=== PATIENT | female | born 1955 | race Caucasian/White ===

== ENCOUNTER 2016-11-30 09:32 | Emergency (ER) | payer MEDICARE, MEDICAID ==
[2016-11-30 10:52] LABS: BASO % 0.4 % (0.0-1.0); EOS # 0.1 K/mm3 (0.0-0.50); LARGE UNSTAINED CELL # 0.3 K/mm3 (0.0-0.4); LARGE UNSTAINED CELL % 2.8 % (0.0-4.0); LYMPH % 10.1 % (24.0-44.0); MEAN CORPUSCULAR HEMOGLOBIN 31.8 pg (27.0-33.0); MEAN CORPUSCULAR HGB CONC 34.1 g/dl (32.0-36.5); MEAN CORPUSCULAR VOLUME 93.3 fl (80.0-96.0); MONO # 0.5 K/mm3 (0.0-0.8); MONO % 5.4 % (0.0-5.0); NEUTROPHILS # 7.8 K/mm3 (1.8-7.7); NEUTROPHILS % 80.4 % (36.0-66.0); PLATELET COUNT, AUTOMATED 301 k/mm3 (150-450); RED CELL DISTRIBUTION WIDTH 12.6 % (11.5-14.5); WHITE BLOOD COUNT 9.7 K/mm3 (4.0-10.0)
[2016-11-30 11:15] LABS: ANION GAP 8 MEQ/L (8-16); BLOOD UREA NITROGEN 13 MG/DL (7-18); CALCIUM LEVEL 8.7 MG/DL (8.8-10.2); CARBON DIOXIDE LEVEL 26 MEQ/L (21-32); CHLORIDE LEVEL 108 MEQ/L (98-107); CREATININE FOR GFR 0.46 MG/DL (0.55-1.02); GLOMERULAR FILTRATION RATE > 60.0 (>45); GLUCOSE, FASTING 112 MG/DL (80-110); POTASSIUM SERUM 4.5 MEQ/L (3.5-5.1); SODIUM LEVEL 142 MEQ/L (136-145)
--- NOTE | 2016-11-30 11:45 | EDDOCDS ---
Nurse's Notes [facility] Name: Neelam Johnson Age: 61 yrs Sex: Female : 1955 Arrival Date: 11/30/2016 Time: 09:32 Bed I6 / 28 Private MD: Krystle Crawford Diagnosis: Lumbago with sciatica, right side;Abdominal aortic ectasia Presentation: 11/30 09:37 Presenting complaint: Patient states: right leg pains from hip to toes. Patient crying hs1 in pain and very anxious as well. Patient states she believes is a side effect of Humira injections. Daughter also concerned as side effects that could be muscle wasting. Adult Sepsis Screening: The patient does not have new or worsening altered mentation. Patient's respiratory rate is less than 22. Systolic blood pressure is greater than 100. Patient has a qSOFA score of 0- Negative Sepsis Screen. Suicide/Homicide risk assessment- the patient denies having any suicidal and/or homicidal ideations and does not present with any other emotional, behavioral or mental health complaints. Status: Patient is not a staff services manager or dependent. Transition of care: patient was not received from another setting of care. 09:37 Acuity: PARAS Level 3 hs1 09:37 Method Of Arrival: Walkin/Carried/Asstd hs1 Triage Assessment: 09:45 General: Appears in no apparent distress, Behavior is appropriate for age, cooperative. hs1 Pain: Location: right leg Pain currently is 8 out of 10 on a pain scale. HIV screening NA for this visit Offered previously. Musculoskeletal: Range of motion limited in right hip very thin in appearance. Reports muscle spaspming. Historical: - Allergies: No known drug Allergies; - Home Meds: 1. Humira Pen Crohn's-UC-HS Start 40 mg/0.8 mL subcutaneous pnkt every 2 weeks due to inject today (Last dose: 11/16/2016) 2. Dry Eye Relief 1-0.2-0.2 % ophthalmic drop daily 3. Fish Oil Oral cap daily 4. acetaminophen 500 mg Oral tab 3 tab - PMHx: Chron's Disease; Cancer, Cervix; Cancer, Skin; - PSHx: Hysterectomy; Bowel resection; right finger amputation; Appendectomy; - Social history: Smoking status: Patient states former smoker of tobacco. No barriers to communication noted, The patient speaks fluent Turkmen, Speaks appropriately for age. - Family history: Not pertinent. - : The pt / caregiver states he / she is not on anticoagulants. Home medication list is obtained from the patient. - Exposure Risk Screening:: None identified. Screenin:42 Screening information is obtained from the patient. Fall risk: No risks identified. kr3 Assistance ADL's: requires no assistance with activities of daily living. Abuse/DV Screen: The patient / caregiver reports he/she is: not in a situation that causes fear, pain or injury. Nutritional screening: No deficits noted. Advance Directives: Currently, there is no health care proxy. home support is adequate. Assessment: 11:43 General: Appears uncomfortable. Pain: Location: right hip and right leg Pain currently kr3 is 10 out of 10 on a pain scale. Neurological: No deficits noted. Respiratory: Respiratory effort is even, unlabored. Derm: Skin is normal. Vital Signs: 09:34 BP 151 / 82; Pulse 84; Resp 18; Temp 97.6(O); Pulse Ox 97% on R/A; Weight 44 kg (R); ct3 Height 5 ft. 3 in. (160.02 cm) (R); Pain 10/10; 09:34 Body Mass Index 17.18 (44.00 kg, 160.02 cm) ct3 Vitals: 09:34 Log In Time: November 30, 2016 at 09:31. ct3 ED Course: 09:33 Patient visited by Padmini Ho PCA. ct3 09:33 Patient moved to Waiting ct3 09:34 Krystle Crawford is Private Physician. ct3 09:35 Patient moved to Pre RCE ct3 09:39 Triage Initiated hs1 09:59 Patient moved to Triage 1 dwg 10:05 [facility] ar2 10:05 Carin Yen MD is Attending Physician. ar2 10:05 Patient visited by Sean Pepe PA-C. ar2 10:40 [facility] Payment Agreement was scanned into [employer] and attached to record. jp5 10:47 Creatine Phosphokinase Sent. dwg 10:47 MED Profile Sent. dwg 10:47 CBC with Diff Sent. dwg 10:59 Patient moved to Radiology [facility] 11:16 Patient moved to I [facility] 11:36 Krystle Crawford is Referral Physician. ar2 11:42 The patient / caregiver is instructed regarding the plan of care and ED course. kr3 Accompanied by Family Member, Patient has correct armband on for positive identification. 11:44 No IV's were initiated during this patient's visit. No procedures done that require kr3 assistance. Order Results: Lab Order: CBC with Diff; SPEC'M 11/30/16 10:40 Test: WHITE BLOOD COUNT; Value: 9.7; Range: 4.0-10.0; Units: K/mm3; Status: F Test: RED BLOOD COUNT; Value: 4.25; Range: 4.00-5.40; Units: M/mm3; Status: F Test: HEMOGLOBIN; Value: 13.5; Range: 12.0-16.0; Units: g/dl; Status: F Test: HEMATOCRIT; Value: 39.7; Range: 36.0-47.0; Units: %; Status: F Test: MEAN CORPUSCULAR VOLUME; Value: 93.3; Range: 80.0-96.0; Units: fl; Status: F Test: MEAN CORPUSCULAR HEMOGLOBIN; Value: 31.8; Range: 27.0-33.0; Units: pg; Status: F Test: MEAN CORPUSCULAR HGB CONC; Value: 34.1; Range: 32.0-36.5; Units: g/dl; Status: F Test: RED CELL DISTRIBUTION WIDTH; Value: 12.6; Range: 11.5-14.5; Units: %; Status: F Test: PLATELET COUNT, AUTOMATED; Value: 301; Range: 150-450; Units: k/mm3; Status: F Test: NEUTROPHILS %; Value: 80.4; Range: 36.0-66.0; Abnormal: Above high normal; Units: %; Status: F Test: LYMPH %; Value: 10.1; Range: 24.0-44.0; Abnormal: Below low normal; Units: %; Status: F Test: MONO %; Value: 5.4; Range: 0.0-5.0; Abnormal: Above high normal; Units: %; Status: F Test: EOS %; Value: 1.0; Range: 0.0-3.0; Units: %; Status: F Test: BASO %; Value: 0.4; Range: 0.0-1.0; Units: %; Status: F Test: LARGE UNSTAINED CELL %; Value: 2.8; Range: 0.0-4.0; Units: %; Status: F Test: NEUTROPHILS #; Value: 7.8; Range: 1.8-7.7; Abnormal: Above high normal; Units: K/mm3; Status: F Test: LYMPH #; Value: 1.0; Range: 1.5-4.5; Abnormal: Below low normal; Units: K/mm3; Status: F Test: MONO #; Value: 0.5; Range: 0.0-0.8; Units: K/mm3; Status: F Test: EOS #; Value: 0.1; Range: 0.0-0.50; Units: K/mm3; Status: F Test: BASO #; Value: 0.0; Range: 0.0-0.2; Units: K/mm3; Status: F Test: LARGE UNSTAINED CELL #; Value: 0.3; Range: 0.0-0.4; Units: K/mm3; Status: F Lab Order: MED Profile; SPEC'M 11/30/16 10:40 Test: GLUCOSE, FASTING; Value: 112; Range: 80-110; Abnormal: Above high normal; Units: MG/DL; Status: F Test: BLOOD UREA NITROGEN; Value: 13; Range: 7-18; Units: MG/DL; Status: F Test: CREATININE FOR GFR; Value: 0.46; Range: 0.55-1.02; Abnormal: Below low normal; Units: MG/DL; Status: F Test: GLOMERULAR FILTRATION RATE; Value: > 60.0; Range: >45; Status: F Test: SODIUM LEVEL; Value: 142; Range: 136-145; Units: MEQ/L; Status: F Test: POTASSIUM SERUM; Value: 4.5; Range: 3.5-5.1; Units: MEQ/L; Status: F Test: CHLORIDE LEVEL; Value: 108; Range: 98-107; Abnormal: Above high normal; Units: MEQ/L; Status: F Test: CARBON DIOXIDE LEVEL; Value: 26; Range: 21-32; Units: MEQ/L; Status: F Test: ANION GAP; Value: 8; Range: 8-16; Units: MEQ/L; Status: F Test: CALCIUM LEVEL; Value: 8.7; Range: 8.8-10.2; Abnormal: Below low normal; Units: MG/DL; Status: F Test Note: ; Units are mL/min/1.73 m2 Chronic Kidney Disease Staging per NKF: Stage I & II GFR >=60 Normal to Mildly Decreased Stage III GFR 30-59 Moderately Decreased Stage IV GFR 15-29 Severely Decreased Stage V GFR <15 Very Little GFR Left ESRD GFR <15 on [employer] Lab Order: Creatine Phosphokinase; SPEC'M 11/30/16 10:40 Test: CPK CREATINE PHOSPHOKINASE; Value: 50; Range: 26-192; Units: U/L; Status: F Outcome: 11:36 Discharge ordered by Provider. ar2 11:43 Discharge Assessment: patient administered narcotics - no. The following High Risk kr3 Discharge criteria are identified: None. Discharged to home ambulatory. Condition: stable. Discharge instructions given to patient, Instructed on discharge instructions, follow up and referral plans. medication usage, Demonstrated understanding of instructions, medications, Pt was receptive of discharge instructions/ teaching. Prescriptions given X 1. No special radiology studies were completed. Property sent home with patient. 11:44 Patient left the ED. kr3 Signatures: Abdiaziz Baird, RN RN Dona Mathur [facility] Marlene Rodas,RN RN kr3 Sean Pepe PA-C PATannerC ar2 Dottie Brandt RN RN hs1 Padmini Ho, ALIS CAREER DEVELOPMENT CONSULTANT ct3 Tristan Cruz jp5 MTDD
--- NOTE | 2016-11-30 11:45 | EDDOCDS ---
Physician Documentation [facility] Name: Neelam Johnson Age: 61 yrs Sex: Female : 1955 Arrival Date: 11/30/2016 Time: 09:32 Bed I6 / 28 Private MD: Krystle Crawford Disposition: 11/30/16 11:36 Discharged to Home/Self Care. Impression: Lumbago with sciatica, right side, Abdominal aortic ectasia. - Condition is Stable. - Discharge Instructions: Sciatica. - Prescriptions for Naprosyn 500 mg Oral Tablet - take 1 tablet by ORAL route 2 times per day take with food; 30 tablet. - Medication Reconciliation, Local Pharmacy Hours form. - Follow up: Krystle Crawford; When: 4 - 5 days; Reason: Recheck today's complaints, Continuance of care. Follow up: Emergency Department; When: As needed; Reason: Worsening of conditions. - Problem is new. - Symptoms have improved. Historical: - Allergies: No known drug Allergies; - Home Meds: 1. Humira Pen Crohn's-UC-HS Start 40 mg/0.8 mL subcutaneous pnkt every 2 weeks due to inject today (Last dose: 11/16/2016) 2. Dry Eye Relief 1-0.2-0.2 % ophthalmic drop daily 3. Fish Oil Oral cap daily 4. acetaminophen 500 mg Oral tab 3 tab - PMHx: Chron's Disease; Cancer, Cervix; Cancer, Skin; - PSHx: Hysterectomy; Bowel resection; right finger amputation; Appendectomy; - Social history: Smoking status: Patient states former smoker of tobacco. No barriers to communication noted, The patient speaks fluent Belarusian, Speaks appropriately for age. - Family history: Not pertinent. - : The pt / caregiver states he / she is not on anticoagulants. Home medication list is obtained from the patient. - Exposure Risk Screening:: None identified. Vital Signs: 11/30 09:34 BP 151 / 82; Pulse 84; Resp 18; Temp 97.6(O); Pulse Ox 97% on R/A; Weight 44 kg / 97 ct3 lbs (R); Height 5 ft. 3 in. (160.02 cm) (R); Pain 10/10; 09:34 Body Mass Index 17.18 (44.00 kg, 160.02 cm) ct3 MDM: 10:15 CBC with Diff Ordered. EDMS 10:15 MED Profile Ordered. EDMS 10:15 Creatine Phosphokinase Ordered. EDMS 10:16 Spine. Lumbosacral, Complete Ordered. EDMS 10:40 [facility] Payment Agreement was scanned into [employer] and attached to record. jp5 10:41 Financial registration complete. jp5 11:29 CBC with Diff Reviewed. ar2 11:29 MED Profile Reviewed. ar2 11:29 Creatine Phosphokinase Reviewed. ar2 Signatures: Dispatcher [employer] EDMS Marlene Rodas,RN RN kr3 Sean Pepe PA-C PAAishwarya ar2 Dottie Brandt RN RN hs1 Tristan Cruz jp5 The chart was reviewed and I authenticate all verbal orders and agree with the evaluation and treatment provided.Attachments: 10:40 [facility] Payment Agreement jp5 MTDD
--- NOTE | 2016-11-30 22:35 | REP ---
Lumbosacral spine series 11/30/2016 Indication: Right sciatica Findings: There is very minimal levoscoliosis of the lumbar spine, with apex at L3. There is no acute fracture or spondylolisthesis. There is ectasia and atherosclerotic changes within the abdominal aorta which measures 2.8 cm proximally , with mild distal tapering. Visualized portions of the SI joints and sacrum are intact. Impression: no acute fracture or spondylolisthesis. Ectasia of the abdominal aorta and mild distal tapering. Moderate atherosclerotic changes Signed by Akanksha Robertson MD 11/30/2016 10:26 P
--- NOTE | 2016-12-02 12:45 | EDDOCDS ---
Physician Documentation [facility] Name: Neelam Johnson Age: 61 yrs Sex: Female : 1955 Arrival Date: 11/30/2016 Time: 09:32 Bed I6 / 28 Private MD: Krystle Crawford Disposition: 11/30/16 11:36 Discharged to Home/Self Care. Impression: Lumbago with sciatica, right side, Abdominal aortic ectasia. - Condition is Stable. - Discharge Instructions: Sciatica. - Prescriptions for Naprosyn 500 mg Oral Tablet - take 1 tablet by ORAL route 2 times per day take with food; 30 tablet. - Medication Reconciliation, Local Pharmacy Hours form. - Follow up: Krystle Crawford; When: 4 - 5 days; Reason: Recheck today's complaints, Continuance of care. Follow up: Emergency Department; When: As needed; Reason: Worsening of conditions. - Problem is new. - Symptoms have improved. Historical: - Allergies: No known drug Allergies; - Home Meds: 1. Humira Pen Crohn's-UC-HS Start 40 mg/0.8 mL subcutaneous pnkt every 2 weeks due to inject today (Last dose: 11/16/2016) 2. Dry Eye Relief 1-0.2-0.2 % ophthalmic drop daily 3. Fish Oil Oral cap daily 4. acetaminophen 500 mg Oral tab 3 tab - PMHx: Chron's Disease; Cancer, Cervix; Cancer, Skin; - PSHx: Hysterectomy; Bowel resection; right finger amputation; Appendectomy; - Social history: Smoking status: Patient states former smoker of tobacco. No barriers to communication noted, The patient speaks fluent Chinese, Speaks appropriately for age. - Family history: Not pertinent. - : The pt / caregiver states he / she is not on anticoagulants. Home medication list is obtained from the patient. - Exposure Risk Screening:: None identified. Vital Signs: 11/30 09:34 BP 151 / 82; Pulse 84; Resp 18; Temp 97.6(O); Pulse Ox 97% on R/A; Weight 44 kg / 97 ct3 lbs (R); Height 5 ft. 3 in. (160.02 cm) (R); Pain 10/10; 09:34 Body Mass Index 17.18 (44.00 kg, 160.02 cm) ct3 MDM: 10:15 CBC with Diff Ordered. EDMS 10:15 MED Profile Ordered. EDMS 10:15 Creatine Phosphokinase Ordered. EDMS 10:16 Spine. Lumbosacral, Complete Ordered. EDMS 10:40 [facility] Payment Agreement was scanned into [employer] and attached to record. jp5 10:41 Financial registration complete. jp5 11:29 CBC with Diff Reviewed. ar2 11:29 MED Profile Reviewed. ar2 11:29 Creatine Phosphokinase Reviewed. ar2 14:52 T-Sheet-- Draft Copy was scanned into [email or web address] and attached to record. gb 14:52 Radiology Report was scanned into [email or web address] and attached to record. gb Signatures: Dispatcher [employer] EDMS Trinh Jimenez, Kobe Bullock gb Marlene Rodas,RN RN kr3 Sean Pepe, PAAishwarya PAAishwarya ar2 Dottie Brandt RN RN hs1 Tristan Cruz jp5 The chart was reviewed and I authenticate all verbal orders and agree with the evaluation and treatment provided.Attachments: 10:40 [facility] Payment Agreement jp5 14:52 T-Sheet-- Draft Copy gb Chart Complete MTDD
--- NOTE | 2016-12-02 12:45 | EDDOCDS ---
Physician Documentation [facility] Name: Neelam Johnson Age: 61 yrs Sex: Female : 1955 Arrival Date: 11/30/2016 Time: 09:32 Bed I6 / 28 Private MD: Krystle Crawford Disposition: 11/30/16 11:36 Discharged to Home/Self Care. Impression: Lumbago with sciatica, right side, Abdominal aortic ectasia. - Condition is Stable. - Discharge Instructions: Sciatica. - Prescriptions for Naprosyn 500 mg Oral Tablet - take 1 tablet by ORAL route 2 times per day take with food; 30 tablet. - Medication Reconciliation, Local Pharmacy Hours form. - Follow up: Krystle Crawford; When: 4 - 5 days; Reason: Recheck today's complaints, Continuance of care. Follow up: Emergency Department; When: As needed; Reason: Worsening of conditions. - Problem is new. - Symptoms have improved. Historical: - Allergies: No known drug Allergies; - Home Meds: 1. Humira Pen Crohn's-UC-HS Start 40 mg/0.8 mL subcutaneous pnkt every 2 weeks due to inject today (Last dose: 11/16/2016) 2. Dry Eye Relief 1-0.2-0.2 % ophthalmic drop daily 3. Fish Oil Oral cap daily 4. acetaminophen 500 mg Oral tab 3 tab - PMHx: Chron's Disease; Cancer, Cervix; Cancer, Skin; - PSHx: Hysterectomy; Bowel resection; right finger amputation; Appendectomy; - Social history: Smoking status: Patient states former smoker of tobacco. No barriers to communication noted, The patient speaks fluent Slovenian, Speaks appropriately for age. - Family history: Not pertinent. - : The pt / caregiver states he / she is not on anticoagulants. Home medication list is obtained from the patient. - Exposure Risk Screening:: None identified. Vital Signs: 11/30 09:34 BP 151 / 82; Pulse 84; Resp 18; Temp 97.6(O); Pulse Ox 97% on R/A; Weight 44 kg / 97 ct3 lbs (R); Height 5 ft. 3 in. (160.02 cm) (R); Pain 10/10; 09:34 Body Mass Index 17.18 (44.00 kg, 160.02 cm) ct3 MDM: 10:15 CBC with Diff Ordered. EDMS 10:15 MED Profile Ordered. EDMS 10:15 Creatine Phosphokinase Ordered. EDMS 10:16 Spine. Lumbosacral, Complete Ordered. EDMS 10:40 [facility] Payment Agreement was scanned into [employer] and attached to record. jp5 10:41 Financial registration complete. jp5 11:29 CBC with Diff Reviewed. ar2 11:29 MED Profile Reviewed. ar2 11:29 Creatine Phosphokinase Reviewed. ar2 14:52 T-Sheet-- Draft Copy was scanned into [employer] and attached to record. gb 14:52 Radiology Report was scanned into [employer] and attached to record. gb Signatures: Dispatcher [employer] EDMS Trinh Jimenez, Kobe Bullock gb Marlene Rodas,RN RN kr3 Sean Pepe, PAAishwarya PAAishwarya ar2 Dottie Brandt RN RN hs1 Tristan Cruz jp5 The chart was reviewed and I authenticate all verbal orders and agree with the evaluation and treatment provided.Attachments: 10:40 [facility] Payment Agreement jp5 14:52 T-Sheet-- Draft Copy gb Chart Complete MTDD
--- NOTE | 2016-12-02 12:45 | EDDOCDS ---
Nurse's Notes [facility] Name: Neelam Johnson Age: 61 yrs Sex: Female : 1955 Arrival Date: 11/30/2016 Time: 09:32 Bed I6 / 28 Private MD: Krystle Crawford Diagnosis: Lumbago with sciatica, right side;Abdominal aortic ectasia Presentation: 11/30 09:37 Presenting complaint: Patient states: right leg pains from hip to toes. Patient crying hs1 in pain and very anxious as well. Patient states she believes is a side effect of Humira injections. Daughter also concerned as side effects that could be muscle wasting. Adult Sepsis Screening: The patient does not have new or worsening altered mentation. Patient's respiratory rate is less than 22. Systolic blood pressure is greater than 100. Patient has a qSOFA score of 0- Negative Sepsis Screen. Suicide/Homicide risk assessment- the patient denies having any suicidal and/or homicidal ideations and does not present with any other emotional, behavioral or mental health complaints. Status: Patient is not a account services associate or dependent. Transition of care: patient was not received from another setting of care. 09:37 Acuity: PARAS Level 3 hs1 09:37 Method Of Arrival: Walkin/Carried/Asstd hs1 Triage Assessment: 09:45 General: Appears in no apparent distress, Behavior is appropriate for age, cooperative. hs1 Pain: Location: right leg Pain currently is 8 out of 10 on a pain scale. HIV screening NA for this visit Offered previously. Musculoskeletal: Range of motion limited in right hip very thin in appearance. Reports muscle spaspming. Historical: - Allergies: No known drug Allergies; - Home Meds: 1. Humira Pen Crohn's-UC-HS Start 40 mg/0.8 mL subcutaneous pnkt every 2 weeks due to inject today (Last dose: 11/16/2016) 2. Dry Eye Relief 1-0.2-0.2 % ophthalmic drop daily 3. Fish Oil Oral cap daily 4. acetaminophen 500 mg Oral tab 3 tab - PMHx: Chron's Disease; Cancer, Cervix; Cancer, Skin; - PSHx: Hysterectomy; Bowel resection; right finger amputation; Appendectomy; - Social history: Smoking status: Patient states former smoker of tobacco. No barriers to communication noted, The patient speaks fluent Hebrew, Speaks appropriately for age. - Family history: Not pertinent. - : The pt / caregiver states he / she is not on anticoagulants. Home medication list is obtained from the patient. - Exposure Risk Screening:: None identified. Screenin:42 Screening information is obtained from the patient. Fall risk: No risks identified. kr3 Assistance ADL's: requires no assistance with activities of daily living. Abuse/DV Screen: The patient / caregiver reports he/she is: not in a situation that causes fear, pain or injury. Nutritional screening: No deficits noted. Advance Directives: Currently, there is no health care proxy. home support is adequate. Assessment: 11:43 General: Appears uncomfortable. Pain: Location: right hip and right leg Pain currently kr3 is 10 out of 10 on a pain scale. Neurological: No deficits noted. Respiratory: Respiratory effort is even, unlabored. Derm: Skin is normal. Vital Signs: 09:34 BP 151 / 82; Pulse 84; Resp 18; Temp 97.6(O); Pulse Ox 97% on R/A; Weight 44 kg (R); ct3 Height 5 ft. 3 in. (160.02 cm) (R); Pain 10/10; 09:34 Body Mass Index 17.18 (44.00 kg, 160.02 cm) ct3 Vitals: 09:34 Log In Time: November 30, 2016 at 09:31. ct3 ED Course: 09:33 Patient visited by Padmini Ho PCA. ct3 09:33 Patient moved to Waiting ct3 09:34 Krystle Crawford is Private Physician. ct3 09:35 Patient moved to Pre RCE ct3 09:39 Triage Initiated hs1 09:59 Patient moved to Triage 1 dwg 10:05 [facility] ar2 10:05 Carin Yen MD is Attending Physician. ar2 10:05 Patient visited by Sean Pepe PA-C. ar2 10:40 [facility] Payment Agreement was scanned into [employer] and attached to record. jp5 10:47 Creatine Phosphokinase Sent. dwg 10:47 MED Profile Sent. dwg 10:47 CBC with Diff Sent. dwg 10:59 Patient moved to Radiology [facility] 11:16 Patient moved to I [facility] 11:36 Krystle Crawford is Referral Physician. ar2 11:42 The patient / caregiver is instructed regarding the plan of care and ED course. kr3 Accompanied by Family Member, Patient has correct armband on for positive identification. 11:44 No IV's were initiated during this patient's visit. No procedures done that require kr3 assistance. 14:52 T-Sheet-- Draft Copy was scanned into [employer] and attached to record. gb 14:52 Radiology Report was scanned into [employer] and attached to record. gb 22:46 Spine. Lumbosacral, Complete Returned. EDMS Order Results: Lab Order: CBC with Diff; SPEC'M 11/30/16 10:40 Test: WHITE BLOOD COUNT; Value: 9.7; Range: 4.0-10.0; Units: K/mm3; Status: F Test: RED BLOOD COUNT; Value: 4.25; Range: 4.00-5.40; Units: M/mm3; Status: F Test: HEMOGLOBIN; Value: 13.5; Range: 12.0-16.0; Units: g/dl; Status: F Test: HEMATOCRIT; Value: 39.7; Range: 36.0-47.0; Units: %; Status: F Test: MEAN CORPUSCULAR VOLUME; Value: 93.3; Range: 80.0-96.0; Units: fl; Status: F Test: MEAN CORPUSCULAR HEMOGLOBIN; Value: 31.8; Range: 27.0-33.0; Units: pg; Status: F Test: MEAN CORPUSCULAR HGB CONC; Value: 34.1; Range: 32.0-36.5; Units: g/dl; Status: F Test: RED CELL DISTRIBUTION WIDTH; Value: 12.6; Range: 11.5-14.5; Units: %; Status: F Test: PLATELET COUNT, AUTOMATED; Value: 301; Range: 150-450; Units: k/mm3; Status: F Test: NEUTROPHILS %; Value: 80.4; Range: 36.0-66.0; Abnormal: Above high normal; Units: %; Status: F Test: LYMPH %; Value: 10.1; Range: 24.0-44.0; Abnormal: Below low normal; Units: %; Status: F Test: MONO %; Value: 5.4; Range: 0.0-5.0; Abnormal: Above high normal; Units: %; Status: F Test: EOS %; Value: 1.0; Range: 0.0-3.0; Units: %; Status: F Test: BASO %; Value: 0.4; Range: 0.0-1.0; Units: %; Status: F Test: LARGE UNSTAINED CELL %; Value: 2.8; Range: 0.0-4.0; Units: %; Status: F Test: NEUTROPHILS #; Value: 7.8; Range: 1.8-7.7; Abnormal: Above high normal; Units: K/mm3; Status: F Test: LYMPH #; Value: 1.0; Range: 1.5-4.5; Abnormal: Below low normal; Units: K/mm3; Status: F Test: MONO #; Value: 0.5; Range: 0.0-0.8; Units: K/mm3; Status: F Test: EOS #; Value: 0.1; Range: 0.0-0.50; Units: K/mm3; Status: F Test: BASO #; Value: 0.0; Range: 0.0-0.2; Units: K/mm3; Status: F Test: LARGE UNSTAINED CELL #; Value: 0.3; Range: 0.0-0.4; Units: K/mm3; Status: F Lab Order: [facility]; [facility]' 11/30/16 10:40 Test: GLUCOSE, FASTING; Value: 112; Range: 80-110; Abnormal: Above high normal; Units: MG/DL; Status: F Test: BLOOD UREA NITROGEN; Value: 13; Range: 7-18; Units: MG/DL; Status: F Test: CREATININE FOR GFR; Value: 0.46; Range: 0.55-1.02; Abnormal: Below low normal; Units: MG/DL; Status: F Test: GLOMERULAR FILTRATION RATE; Value: > 60.0; Range: >45; Status: F Test: SODIUM LEVEL; Value: 142; Range: 136-145; Units: MEQ/L; Status: F Test: POTASSIUM SERUM; Value: 4.5; Range: 3.5-5.1; Units: MEQ/L; Status: F Test: CHLORIDE LEVEL; Value: 108; Range: 98-107; Abnormal: Above high normal; Units: MEQ/L; Status: F Test: CARBON DIOXIDE LEVEL; Value: 26; Range: 21-32; Units: MEQ/L; Status: F Test: ANION GAP; Value: 8; Range: 8-16; Units: MEQ/L; Status: F Test: CALCIUM LEVEL; Value: 8.7; Range: 8.8-10.2; Abnormal: Below low normal; Units: MG/DL; Status: F Test Note: ; Units are mL/min/1.73 m2 Chronic Kidney Disease Staging per NKF: Stage I & II GFR >=60 Normal to Mildly Decreased Stage III GFR 30-59 Moderately Decreased Stage IV GFR 15-29 Severely Decreased Stage V GFR <15 Very Little GFR Left ESRD GFR <15 on TOUCH UP WORKER Lab Order: Creatine Phosphokinase; SPEC'M 11/30/16 10:40 Test: CPK CREATINE PHOSPHOKINASE; Value: 50; Range: 26-192; Units: U/L; Status: F Radiology Order: Spine. Lumbosacral, Complete Test: Spine. Lumbosacral, Complete REASON FOR EXAMINATION: right sciatica; Lumbosacral spine series 11/30/2016; ; Indication: Right sciatica; ; Findings: There is very minimal levoscoliosis of the lumbar spine, with apex at; L3. There is no acute fracture or spondylolisthesis. There is ectasia and; atherosclerotic changes within the abdominal aorta which measures 2.8 cm; proximally , with mild distal tapering. Visualized portions of the SI joints; and sacrum are intact.; ; Impression: no acute fracture or spondylolisthesis.; ; Ectasia of the abdominal aorta and mild distal tapering. Moderate; atherosclerotic changes; ; ; Signed by; Akanksha Robertson MD 11/30/2016 10:26 P; Outcome: 11:36 Discharge ordered by Provider. ar2 11:43 Discharge Assessment: patient administered narcotics - no. The following High Risk kr3 Discharge criteria are identified: None. Discharged to home ambulatory. Condition: stable. Discharge instructions given to patient, Instructed on discharge instructions, follow up and referral plans. medication usage, Demonstrated understanding of instructions, medications, Pt was receptive of discharge instructions/ teaching. Prescriptions given X 1. No special radiology studies were completed. Property sent home with patient. 11:44 Patient left the ED. kr3 Signatures: Dispatcher [employer] EDAbdiaziz Jarrett, RN RN Dona Mathur [facility] Trinh Jimenez, Marlene Nicholson RN RN kr3 Sean Pepe, PA-C PA-C ar2 Dottie Brandt RN RN hs1 Padmini Ho, [employer] E[employer]IPMENT ERECTOR ct3 Tristan Cruz 5 Chart Complete MTDD
== END 2016-11-30 11:44 | disposition home or self-care (01) ==
LOC: M ED 09:32
DX: M54.31 Sciatica, right side (principal); I77.811 Abdominal aortic ectasia; K50.90 Crohn's disease, unspecified, without complications; Z85.41 Personal history of malignant neoplasm of cervix uteri; Z85.828 Personal history of other malignant neoplasm of skin; Z79.899 Other long term (current) drug therapy; Z87.891 Personal history of nicotine dependence

== ENCOUNTER → 2017-01-06 | Outpatient (CLI) | payer MEDICARE ==
[~2017-01-06] MED LIST: ISOVUE-370 76% 100ML VIAL (Q9967) As Ordered ONE
--- NOTE | 2017-01-06 13:53 | REP ---
Clinical: Followup lung nodules. Comparison: 04/30/2014. Technique: Axial contrast enhanced images from the thoracic inlet to the upper abdomen using 100 ml Isovue 370 intravenous contrast material with coronal and sagittal re-formations. Findings: Moderate diffuse emphysematous changes are appreciated along with mild bronchiectasis, biapical, medial right middle lobe and left lower lobe scarring. No previously noted areas of "tree in bud" infiltrates involving the right middle lobe and medial right lower lobe have resolved. The small nodular density in the anterior periphery of the left upper lobe represent a small focus of atelectasis and is no longer present. No new significant consolidation, nodule or mass lesion is appreciated. No pleural effusion/reaction or pneumothorax. Mediastinum demonstrates normal heart/pericardium and thoracic aorta with mild atherosclerotic changes. No pericardial effusion. No cardiomegaly. No axillary, hilar, or mediastinal adenopathy. Musculoskeletal structures are intact and normal for age. Impression: 1. Moderate chronic changes as described above. 2. Previously noted small areas of "tree in bud" infiltrates and 4 mm anterior left upper lobe density have resolved. 3. No new, significant mediastinal or pleuroparenchymal process. Signed by Junior Whitley MD 01/06/2017 01:45 P
== END ==
LOC: M RAD 12:55
PROVIDERS: ATTEND Nurse Practitioner Adult Health
DX: R91.8 Other nonspecific abnormal finding of lung field (principal)
CPT/HCPCS: 71260; Q9967

== ENCOUNTER → 2017-02-09 | Outpatient (REF) | payer MEDICARE | LOC: M SFHCPLAZ 13:31 | PROVIDERS: ATTEND Nurse Practitioner Adult Health | DX: K50.90 Crohn's disease, unspecified, without complications (principal) ==

== ENCOUNTER 2017-03-01 08:10 | Outpatient (RCR) | payer MEDICARE | END 2017-03-20 | LOC: M PT 08:10 | PROVIDERS: ATTEND Nurse Practitioner Adult Health | DX: M25.552 Pain in left hip (principal) | CPT/HCPCS: 97110; 97140; 97162; G8978; G8979 ==

== ENCOUNTER → 2017-03-17 | Outpatient (REF) | payer MEDICARE | LOC: M LAB REF 09:46 | PROVIDERS: ATTEND Physician Assistant | DX: R30.0 Dysuria (principal) ==

== ENCOUNTER → 2017-03-17 | Outpatient (CLI) | payer MEDICARE ==
[2017-03-17 19:51] LABS: BASO % 0.5 % (0.0-1.0); EOS # 0.2 K/mm3 (0.0-0.50); EOS % 2.1 % (0.0-3.0); LARGE UNSTAINED CELL # 0.2 K/mm3 (0.0-0.4); LARGE UNSTAINED CELL % 2.1 % (0.0-4.0); LYMPH # 2.4 K/mm3 (1.5-4.5); LYMPH % 26.7 % (24.0-44.0); MEAN CORPUSCULAR HEMOGLOBIN 32.4 pg (27.0-33.0); MEAN CORPUSCULAR VOLUME 95.2 fl (80.0-96.0); MONO # 0.6 K/mm3 (0.0-0.8); MONO % 6.5 % (0.0-5.0); NEUTROPHILS # 5.5 K/mm3 (1.8-7.7); NEUTROPHILS % 62.1 % (36.0-66.0); PLATELET COUNT, AUTOMATED 470 k/mm3 (150-450); RED CELL DISTRIBUTION WIDTH 12.6 % (11.5-14.5); WHITE BLOOD COUNT 8.9 K/mm3 (4.0-10.0)
[2017-03-17 20:12] LABS: ANION GAP 7 MEQ/L (8-16); BLOOD UREA NITROGEN 13 MG/DL (7-18); CALCIUM LEVEL 8.7 MG/DL (8.8-10.2); CARBON DIOXIDE LEVEL 29 MEQ/L (21-32); CHLORIDE LEVEL 107 MEQ/L (98-107); CREATININE FOR GFR 0.49 MG/DL (0.55-1.02); GLOMERULAR FILTRATION RATE > 60.0 (>45); GLUCOSE, FASTING 93 MG/DL (80-110); POTASSIUM SERUM 4.5 MEQ/L (3.5-5.1); SODIUM LEVEL 143 MEQ/L (136-145)
== END ==
LOC: M WUC 18:40
PROVIDERS: ATTEND Physician Assistant
DX: R30.0 Dysuria (principal); R10.32 Left lower quadrant pain

== ENCOUNTER → 2017-03-21 | Outpatient (CLI) | payer MEDICARE ==
[~2017-03-21] MED LIST changes: +GASTROGRAFIN SOLUTION 30ML (Q9963) As Ordered ONE
--- NOTE | 2017-03-21 19:55 | REP ---
CT ABDOMEN AND PELVIS WITHOUT AND WITH IV AND ORAL CONTRAST: 03/21/2017. Clinical history: Dysuria, left lower quadrant pain, history of Crohn disease. Prior uterine carcinoma with hysterectomy. Technique: Oral Gastrografin mixture 10 ml in 290 ml of flavored water for two doses per our bowel contrast protocol. Scanning through the abdomen followed by bolus of 100 ml Isovue 370 with venous phase imaging through the abdomen and pelvis and delayed imaging through the abdomen. Coronal and sagittal reconstructions provided. CT abdomen: Lung bases show some minor interstitial fibrotic changes and mild cylindrical bronchiectasis in the left lower lobe. No pleural effusion, mass or acute infiltrate. Heart is not enlarged and no pericardial thickening or effusion. A small hiatal hernia is suspected. It appears mostly reduced compared to the upper GI series 07/04/2014. No cardiomegaly, pericardial thickening or pericardial effusion. I see no hepatomegaly. The vertical diameter of the right lobe of the liver less than 18 cm. No hepatic mass, biliary dilatation or ascites. Spleen is not enlarged and shows no focal lesion. Thickening of the left adrenal gland and hypodensity suggesting a left adrenal adenoma. There is a smaller right adrenal adenoma, also with negative CT attenuation values and both unchanged from previous study. The kidneys show no stone, hydronephrosis, mass or cyst. No perinephric fluid. The aorta shows diffuse atherosclerotic calcifications, fairly heavy distally and particularly in the proximal iliac arteries. There is fusiform dilatation of the infrarenal abdominal aorta, which has aneurysmal appearance but does not reach aneurysmal size only 2.5 cm in maximum diameter. I would estimate 70% stenosis of the central lumen by extensive atherosclerotic plaque, certainly progressive compared to the 2014 study. No periaortic or other retroperitoneal pathologic sized lymphadenopathy. Small bowel loops shows contrast filling them proximally to distally. A loop of distal ileum which terminates in an anastomosis with the colon shows extensive edema, thickening and stranding in the mesentery adjacent to it, representing Crohn disease, which extends from the left mid abdomen into the left lower quadrant and transversely across the abdomen to the right colon. There is no free air, perforation and no ascites or adenopathy. Colon is collapsed on the left side of the abdomen below the iliac crest and into the sigmoid; mostly fluid-filled without much stool evident except in the residual portion of the right colon. No ventral hernia. Bone show degenerative changes in the posterior lumbar facets at L5-S1 with lumbar spine otherwise unremarkable. Visualized ribs intact. The dilatation of the small bowel immediately above the lengthy segment of strictured ileum extending from the anastomosis, about 9 cm may suggest some partial small-bowel obstruction. There is liquid stool and particulate in this region. This may reflect a partial obstructing pattern. CT pelvis: The bone windows show the hips, SI joints, sacrum, iliac wings, acetabuli and symphysis pubis intact. Bladder without mass or wall thickening. Vaginal cuff intact without pelvic mass. No adenopathy. Distal left colon, sigmoid with collapse and questionable wall thickening. This could be skip lesion, proctosigmoiditis from Crohn disease. I do not see abdominal or pelvic ascites or adenopathy. No ventral or inguinal hernia nor pathologic size inguinal adenopathy. Impression: 1. At least 9 cm long edematous wall strictured lumen for the distal ileum with anastomosis at the right colon and there is dilatation of the loop of small bowel with liquid and particulate matter suggesting some partial obstructive pattern there. Remainder of small bowel fluid and contrast filled. No ascites, adenopathy or free air/perforation. 2. Distal left colon, sigmoid and rectum collapsed with wall thickening and possibly some skip lesion proctosigmoiditis from Crohn disease. 3. Upper abdominal solid organs show bilateral adrenal adenomas and benign-appearing on noncontrast CT with no other significant solid organ finding. 4. The aorta shows fusiform dilatation, but only maximum diameter of 2.5 cm, however, the lumen is narrowed approximately 70% cross-section below the level of the interpolar region of the kidneys and progressive atherosclerotic change compared to the 2014 study. Findings consistent with active Crohn disease distal ileum segment and possibly in the left colon to rectosigmoid. Signed by Lasha Hale MD 03/21/2017 08:41 P
== END ==
LOC: M RAD 16:48
PROVIDERS: ATTEND Physician Assistant
DX: R10.9 Unspecified abdominal pain (principal); R30.0 Dysuria
CPT/HCPCS: 74178; Q9963; Q9967

== ENCOUNTER → 2017-08-10 | Outpatient (REF) | payer MEDICARE ==
[2017-08-10 16:58] LABS: ALBUMIN 2.6 GM/DL (3.2-5.2); ALBUMIN/GLOBULIN RATIO 0.72 (1.00-1.93); ALKALINE PHOSPHATASE 139 U/L (45-117); ALT/SGPT 15 U/L (12-78); ANION GAP 9 MEQ/L (8-16); AST/SGOT 9 U/L (15-37); BILIRUBIN,TOTAL 0.3 MG/DL (0.2-1.0); BLOOD UREA NITROGEN 16 MG/DL (7-18); CARBON DIOXIDE LEVEL 26 MEQ/L (21-32); CHLORIDE LEVEL 107 MEQ/L (98-107); CREATININE FOR GFR 0.39 MG/DL (0.55-1.02); GLOMERULAR FILTRATION RATE > 60.0 (>45); GLUCOSE, FASTING 81 MG/DL (80-110); POTASSIUM SERUM 4.3 MEQ/L (3.5-5.1); SODIUM LEVEL 142 MEQ/L (136-145); TOTAL PROTEIN 6.2 GM/DL (6.4-8.2)
[2017-08-10 18:36] LABS: MEAN CORPUSCULAR HEMOGLOBIN 32.8 pg (27.0-33.0); MEAN CORPUSCULAR HGB CONC 33.3 g/dl (32.0-36.5); MEAN CORPUSCULAR VOLUME 98.5 fl (80.0-96.0); RED CELL DISTRIBUTION WIDTH 13.5 % (11.5-14.5); WHITE BLOOD COUNT 9.6 K/mm3 (4.0-10.0)
== END ==
LOC: M SFHCPLAZ 14:08
PROVIDERS: ATTEND Nurse Practitioner Adult Health
DX: K50.90 Crohn's disease, unspecified, without complications (principal); E55.9 Vitamin D deficiency, unspecified
CPT/HCPCS: 36415; 80053; 82306; 85027; G0402

== ENCOUNTER → 2017-08-31 | Outpatient (REF) | payer MEDICARE ==
[2017-08-31 16:16] LABS: ALBUMIN 2.6 GM/DL (3.2-5.2); ALBUMIN/GLOBULIN RATIO 0.76 (1.00-1.93); ALKALINE PHOSPHATASE 116 U/L (45-117); ALT/SGPT 27 U/L (12-78); ANION GAP 8 MEQ/L (8-16); AST/SGOT 15 U/L (15-37); BILIRUBIN,TOTAL 0.2 MG/DL (0.2-1.0); BLOOD UREA NITROGEN 22 MG/DL (7-18); CALCIUM LEVEL 8.9 MG/DL (8.8-10.2); CARBON DIOXIDE LEVEL 24 MEQ/L (21-32); CHLORIDE LEVEL 106 MEQ/L (98-107); CREATININE FOR GFR 0.28 MG/DL (0.55-1.02); GLOMERULAR FILTRATION RATE > 60.0 (>45); GLUCOSE, FASTING 99 MG/DL (80-110); MAGNESIUM LEVEL 2.3 MG/DL (1.8-2.4); PHOSPHORUS LEVEL 3.9 MG/DL (2.5-4.9); POTASSIUM SERUM 4.5 MEQ/L (3.5-5.1); SODIUM LEVEL 138 MEQ/L (136-145)
== END ==
LOC: M LAB REF 15:16
PROVIDERS: ATTEND Surgery
DX: K50.90 Crohn's disease, unspecified, without complications (principal)

== ENCOUNTER → 2017-09-07 | Outpatient (REF) | payer MEDICARE ==
[2017-09-07 15:23] LABS: ALBUMIN 2.7 GM/DL (3.2-5.2); ALBUMIN/GLOBULIN RATIO 0.82 (1.00-1.93); ALKALINE PHOSPHATASE 128 U/L (45-117); ALT/SGPT 27 U/L (12-78); ANION GAP 6 MEQ/L (8-16); AST/SGOT 12 U/L (15-37); BILIRUBIN,TOTAL 0.2 MG/DL (0.2-1.0); BLOOD UREA NITROGEN 29 MG/DL (7-18); CALCIUM LEVEL 8.5 MG/DL (8.8-10.2); CARBON DIOXIDE LEVEL 26 MEQ/L (21-32); CHLORIDE LEVEL 105 MEQ/L (98-107); CREATININE FOR GFR 0.31 MG/DL (0.55-1.02); GLOMERULAR FILTRATION RATE > 60.0 (>45); GLUCOSE, FASTING 91 MG/DL (80-110); MAGNESIUM LEVEL 2.2 MG/DL (1.8-2.4); PHOSPHORUS LEVEL 4.4 MG/DL (2.5-4.9); POTASSIUM SERUM 4.4 MEQ/L (3.5-5.1); SODIUM LEVEL 137 MEQ/L (136-145); TRIGLYCERIDES LEVEL 210 MG/DL (<150)
== END ==
LOC: M LAB REF 14:55
PROVIDERS: ATTEND Surgery
DX: K50.90 Crohn's disease, unspecified, without complications (principal)

== ENCOUNTER → 2017-09-12 | Outpatient (REF) | payer MEDICARE ==
[2017-09-12 14:58] LABS: ALBUMIN/GLOBULIN RATIO 0.77 (1.00-1.93); ALKALINE PHOSPHATASE 139 U/L (45-117); ALT/SGPT 22 U/L (12-78); ANION GAP 7 MEQ/L (8-16); AST/SGOT 10 U/L (15-37); BILIRUBIN,TOTAL 0.4 MG/DL (0.2-1.0); BLOOD UREA NITROGEN 31 MG/DL (7-18); CALCIUM LEVEL 9.1 MG/DL (8.8-10.2); CARBON DIOXIDE LEVEL 24 MEQ/L (21-32); CHLORIDE LEVEL 106 MEQ/L (98-107); CREATININE FOR GFR 0.41 MG/DL (0.55-1.02); GLOMERULAR FILTRATION RATE > 60.0 (>45); GLUCOSE, FASTING 104 MG/DL (80-110); MAGNESIUM LEVEL 2.3 MG/DL (1.8-2.4); PHOSPHORUS LEVEL 4.5 MG/DL (2.5-4.9); SODIUM LEVEL 137 MEQ/L (136-145); TOTAL PROTEIN 6.9 GM/DL (6.4-8.2)
[2017-09-12 15:06] LABS: POTASSIUM SERUM 5.1 MEQ/L (3.5-5.1)
== END ==
LOC: M LAB REF 13:49
PROVIDERS: ATTEND Surgery
DX: K50.90 Crohn's disease, unspecified, without complications (principal)

== ENCOUNTER → 2017-09-19 | Outpatient (REF) | payer MEDICARE ==
[2017-09-19 14:38] LABS: ALBUMIN 3.1 GM/DL (3.2-5.2); ALBUMIN/GLOBULIN RATIO 0.82 (1.00-1.93); ALKALINE PHOSPHATASE 130 U/L (45-117); ALT/SGPT 17 U/L (12-78); ANION GAP 9 MEQ/L (8-16); AST/SGOT 7 U/L (7-37); BILIRUBIN,TOTAL 0.2 MG/DL (0.2-1.0); BLOOD UREA NITROGEN 26 MG/DL (7-18); CARBON DIOXIDE LEVEL 26 MEQ/L (21-32); CHLORIDE LEVEL 103 MEQ/L (98-107); CREATININE FOR GFR 0.31 MG/DL (0.55-1.02); GLOMERULAR FILTRATION RATE > 60.0 (>45); GLUCOSE, FASTING 90 MG/DL (80-110); MAGNESIUM LEVEL 2.2 MG/DL (1.8-2.4); PHOSPHORUS LEVEL 4.3 MG/DL (2.5-4.9); POTASSIUM SERUM 4.4 MEQ/L (3.5-5.1); SODIUM LEVEL 138 MEQ/L (136-145); TOTAL PROTEIN 6.9 GM/DL (6.4-8.2)
== END ==
LOC: M LAB REF 13:27
PROVIDERS: ATTEND Surgery
DX: E83.42 Hypomagnesemia (principal)

== ENCOUNTER → 2017-10-03 | Outpatient (REF) | payer MEDICARE ==
[2017-10-03 15:20] LABS: ALBUMIN 2.9 GM/DL (3.2-5.2); ALBUMIN/GLOBULIN RATIO 0.74 (1.00-1.93); ALKALINE PHOSPHATASE 140 U/L (45-117); ALT/SGPT 17 U/L (12-78); ANION GAP 6 MEQ/L (8-16); AST/SGOT 8 U/L (7-37); BILIRUBIN,TOTAL 0.2 MG/DL (0.2-1.0); BLOOD UREA NITROGEN 27 MG/DL (7-18); CALCIUM LEVEL 8.9 MG/DL (8.8-10.2); CARBON DIOXIDE LEVEL 28 MEQ/L (21-32); CHLORIDE LEVEL 104 MEQ/L (98-107); CREATININE FOR GFR 0.37 MG/DL (0.55-1.02); GLOMERULAR FILTRATION RATE > 60.0 (>45); GLUCOSE, FASTING 88 MG/DL (80-110); MAGNESIUM LEVEL 2.1 MG/DL (1.8-2.4); PHOSPHORUS LEVEL 4.4 MG/DL (2.5-4.9); POTASSIUM SERUM 4.6 MEQ/L (3.5-5.1); SODIUM LEVEL 138 MEQ/L (136-145); TOTAL PROTEIN 6.8 GM/DL (6.4-8.2); TRIGLYCERIDES LEVEL 107 MG/DL (<150)
== END ==
LOC: M LAB REF 14:15
PROVIDERS: ATTEND Surgery
DX: K50.90 Crohn's disease, unspecified, without complications (principal); Z79.899 Other long term (current) drug therapy

== ENCOUNTER → 2017-10-10 | Outpatient (REF) | payer MEDICARE ==
[2017-10-10 16:15] LABS: ALBUMIN 3.1 GM/DL (3.2-5.2); ALBUMIN/GLOBULIN RATIO 0.84 (1.00-1.93); ALKALINE PHOSPHATASE 136 U/L (45-117); ALT/SGPT 15 U/L (12-78); ANION GAP 10 MEQ/L (8-16); AST/SGOT 10 U/L (7-37); BILIRUBIN,TOTAL 0.2 MG/DL (0.2-1.0); BLOOD UREA NITROGEN 23 MG/DL (7-18); CALCIUM LEVEL 9.2 MG/DL (8.8-10.2); CARBON DIOXIDE LEVEL 24 MEQ/L (21-32); CHLORIDE LEVEL 105 MEQ/L (98-107); CREATININE FOR GFR 0.42 MG/DL (0.55-1.02); GLOMERULAR FILTRATION RATE > 60.0 (>45); GLUCOSE, FASTING 100 MG/DL (80-110); MAGNESIUM LEVEL 2.1 MG/DL (1.8-2.4); PHOSPHORUS LEVEL 3.9 MG/DL (2.5-4.9); POTASSIUM SERUM 4.5 MEQ/L (3.5-5.1); SODIUM LEVEL 139 MEQ/L (136-145); TOTAL PROTEIN 6.8 GM/DL (6.4-8.2)
== END ==
LOC: M LAB REF 15:04
PROVIDERS: ATTEND Surgery
DX: K50.90 Crohn's disease, unspecified, without complications (principal)

== ENCOUNTER → 2017-10-17 | Outpatient (REF) | payer MEDICARE ==
[2017-10-17 13:49] LABS: ALBUMIN 2.9 GM/DL (3.2-5.2); ALBUMIN/GLOBULIN RATIO 0.78 (1.00-1.93); ALKALINE PHOSPHATASE 125 U/L (45-117); ALT/SGPT 11 U/L (12-78); ANION GAP 9 MEQ/L (8-16); AST/SGOT 12 U/L (7-37); BILIRUBIN,TOTAL 0.2 MG/DL (0.2-1.0); BLOOD UREA NITROGEN 25 MG/DL (7-18); CALCIUM LEVEL 9.2 MG/DL (8.8-10.2); CARBON DIOXIDE LEVEL 24 MEQ/L (21-32); CHLORIDE LEVEL 105 MEQ/L (98-107); GLOMERULAR FILTRATION RATE > 60.0 (>45); GLUCOSE, FASTING 99 MG/DL (80-110); PHOSPHORUS LEVEL 4.4 MG/DL (2.5-4.9); POTASSIUM SERUM 4.6 MEQ/L (3.5-5.1); SODIUM LEVEL 138 MEQ/L (136-145); TOTAL PROTEIN 6.6 GM/DL (6.4-8.2)
== END ==
LOC: M LAB REF 12:29
PROVIDERS: ATTEND Surgery
DX: K50.90 Crohn's disease, unspecified, without complications (principal)

== ENCOUNTER → 2018-03-22 | Outpatient (CLI) | payer MEDICARE ==
[2018-03-22 16:07] LABS: BASO # 0.1 10^3/uL (0.0-0.2); BASO % 0.6 % (0.0-1.0); EOS # 0.2 10^3/uL (0.0-0.50); EOS % 1.9 % (0.0-3.0); HEMATOCRIT 43.3 % (36.0-47.0); HEMOGLOBIN 14.3 g/dl (12.0-15.5); IMMATURE GRANULOCYTE % 0.3 % (0-3.0); LYMPH # 1.5 10^3/uL (1.5-4.5); LYMPH % 15.7 % (24.0-44.0); MEAN CORPUSCULAR HEMOGLOBIN 30.1 pg (27.0-33.0); MEAN CORPUSCULAR VOLUME 91.2 fl (80.0-96.0); MONO # 0.8 10^3/uL (0.0-0.8); MONO % 7.8 % (0.0-5.0); NEUTROPHILS # 7.1 10^3/uL (1.8-7.7); NEUTROPHILS % 73.7 % (36.0-66.0); PLATELET COUNT, AUTOMATED 386 10^3/uL (150-450); RED BLOOD COUNT 4.75 10^6/uL (4.00-5.40); RED CELL DISTRIBUTION WIDTH 14.2 % (11.5-14.5); WHITE BLOOD COUNT 9.6 10^3/uL (4.0-10.0)
[2018-03-22 16:32] LABS: ANION GAP 8 MEQ/L (8-16); BLOOD UREA NITROGEN 18 MG/DL (7-18); CALCIUM LEVEL 9.2 MG/DL (8.8-10.2); CARBON DIOXIDE LEVEL 26 MEQ/L (21-32); CHLORIDE LEVEL 107 MEQ/L (98-107); CREATININE FOR GFR 0.53 MG/DL (0.55-1.30); GLOMERULAR FILTRATION RATE > 60.0 (>45); GLUCOSE, FASTING 100 MG/DL (70-100); POTASSIUM SERUM 4.5 MEQ/L (3.5-5.1); SODIUM LEVEL 141 MEQ/L (136-145)
== END ==
LOC: M LAB 15:41
DX: I70.213 Atherosclerosis of native arteries of extremities with intermittent claudication, bilateral legs (principal); F17.211 Nicotine dependence, cigarettes, in remission; Z70.0 Counseling related to sexual attitude
CPT/HCPCS: 80048

== ENCOUNTER 2018-05-04 09:06 | Inpatient (IN) | payer MEDICARE ==
[2018-05-04] MEDS ORDERED: ROCURONIUM BROMIDE 50 MG/5 ML VIAL As Ordered ×3 (09:45→12:34)
[2018-05-04] MEDS ORDERED: fentaNYL 100 MCG/2 ML INJECTION (J3010) As Ordered ×2 (09:45→12:35)
[2018-05-04] MEDS ORDERED: MIDAZOLAM INJ 2 MG/2 ML VIAL (J2250) As Ordered (09:45)
[2018-05-04] MEDS ORDERED: ONDANSETRON 4MG/2ML VIAL (J2405) As Ordered (09:45)
[2018-05-04] MEDS ORDERED: LIDOCAINE 2% INJ 100 MG/5 ML SDV (FOR ANES.) As Ordered (09:45)
[2018-05-04] MEDS ORDERED: NEOSTIGMINE 10 MG/10 ML VIAL (J2710) As Ordered (09:45)
[2018-05-04] MEDS ORDERED: dexameTHASONE 4 MG/ML 1ML VIAL (J1100) As Ordered (09:45)
[2018-05-04] MEDS ORDERED: GLYCOPYRROLATE INJ 0.2 MG/ML 2 ML VIAL As Ordered (09:45)
[2018-05-04] MEDS ORDERED: PROPOFOL 200 MG/20 ML VIAL As Ordered (09:45)
[2018-05-04] MEDS ORDERED: KETOROLAC 60 MG/2 ML VIAL (J1885) As Ordered (09:53)
[2018-05-04] MEDS: LR 1,000 ML IV ×2 (10:38→14:30)
[2018-05-04] MEDS ORDERED: HEPARIN SOD (PORCINE) 5000 UNITS/ML VIAL As Ordered ×2 (11:26→13:08)
[2018-05-04] MEDS: HEPARIN SOD (PORCINE) 5000 UNITS/ML VIAL As Ordered (12:40)
[2018-05-04] MEDS: THROMBIN SOLN 20,000 UNITS KIT As Ordered (12:46)
[2018-05-04] MEDS: PROTAMINE SULF INJ 50 MG/5 ML VIAL (J2720) As Ordered (13:00)
[2018-05-04] MEDS: LIDOCAINE 1% SDV INJ 30 ML VIAL As Ordered (13:56)
[2018-05-04] MEDS: BUPIVACAINE HCL 0.25% 30 ML VIAL As Ordered (13:56)
[2018-05-04] MEDS ORDERED: MORPHINE 4 MG/ML 1ML VIAL/SYRINGE (J2270) IV (14:15)
[2018-05-04] MEDS ORDERED: MOM 30ML SUSPENSION UDC PO (14:15)
[2018-05-04] MEDS ORDERED: ONDANSETRON 4MG/2ML VIAL (J2405) IV ×2 (14:15→14:30)
[2018-05-04] MEDS ORDERED: BISACODYL 10 MG SUPP PR (14:15)
[2018-05-04] MEDS ORDERED: MORPHINE 10 MG/ML 1ML VIAL (J2270) IV (14:30)
[2018-05-04] MEDS: PERCOCET 5MG/325MG TAB PO (14:30)
[2018-05-04] MEDS ORDERED: fentaNYL 100 MCG/2 ML INJECTION (J3010) IV (14:30)
[2018-05-04] MEDS: GABAPENTIN 100 MG CAP PO ×2 (16:53→20:20)
[2018-05-04] MEDS: NORCO, ANEXSIA 5/325MG TABLET (HYDROcodone/ACETAMINOPHEN) PO (18:34)
[2018-05-04] MEDS: SENOKOT S TAB PO (20:20)
[2018-05-04] MEDS: DOCUSATE SODIUM 100 MG CAP PO (20:20)
[2018-05-05] MEDS: MORPHINE 4 MG/ML 1ML VIAL/SYRINGE (J2270) IV (05:38)
[2018-05-05] MEDS: SENOKOT S TAB PO ×2 (08:25→20:27)
[2018-05-05] MEDS: GABAPENTIN 100 MG CAP PO ×3 (08:25→20:26)
[2018-05-05] MEDS: DOCUSATE SODIUM 100 MG CAP PO ×2 (08:25→20:27)
[2018-05-05] MEDS: NORCO, ANEXSIA 5/325MG TABLET (HYDROcodone/ACETAMINOPHEN) PO ×5 (08:27→20:28)
[2018-05-05] MEDS: NS 1,000 ML IV (22:40)
[2018-05-05 23:31] LABS: LACTIC ACID SEPSIS PROTOCOL 0.9 MMOL/L (0.4-2.0)
[2018-05-06] MEDS: NORCO, ANEXSIA 5/325MG TABLET (HYDROcodone/ACETAMINOPHEN) PO ×3 (01:53→21:06)
[2018-05-06] MEDS: D5W/LR 1,000 ML IV ×2 (01:53→16:26)
[2018-05-06] MEDS: MORPHINE 4 MG/ML 1ML VIAL/SYRINGE (J2270) IV ×4 (02:57→16:26)
[2018-05-06] MEDS: DOCUSATE SODIUM 100 MG CAP PO ×2 (07:47→21:06)
[2018-05-06] MEDS: GABAPENTIN 100 MG CAP PO ×3 (07:47→21:06)
[2018-05-06] MEDS: SENOKOT S TAB PO ×2 (07:47→21:05)
[2018-05-06 11:50] LABS: APPEARANCE, URINE CLEAR (CLEAR); BACTERIA, URINE AUTO NEGATIVE (NEGATIVE); BILIRUBIN, URINE AUTO NEGATIVE (NEGATIVE); BLOOD, URINE BLOOD NEGATIVE (NEGATIVE); COLOR, URINE YELLOW (YELLOW); GLUCOSE, URINE (UA) AUTO NEGATIVE (NEGATIVE); KETONE, URINE AUTO TRACE mg/dL (NEGATIVE); LEUKOCYTE ESTERASE, URINE AUTO NEGATIVE (NEGATIVE); MUCUS, URINE SMALL (NEGATIVE); NITRITE, URINE AUTO NEGATIVE (NEGATIVE); PROTEIN, URINE AUTO NEGATIVE (NEGATIVE); RBC, URINE AUTO 0 /HPF (0-3); SPECIFIC GRAVITY URINE AUTO 1.014 (1.002-1.035); SQUAMOUS EPITHELIAL CELL UR AU 0 /HPF (0-6); UROBILINOGEN, URINE AUTO 0.2 mg/dL (0.0-2.0); WBC, URINE AUTO 0 /HPF (0-3)
[2018-05-07] MEDS: NORCO, ANEXSIA 5/325MG TABLET (HYDROcodone/ACETAMINOPHEN) PO ×4 (01:30→20:00)
[2018-05-07 06:13] LABS: HEMATOCRIT 33.5 % (36.0-47.0); HEMOGLOBIN 11.2 g/dl (12.0-15.5); MEAN CORPUSCULAR HEMOGLOBIN 29.9 pg (27.0-33.0); MEAN CORPUSCULAR HGB CONC 33.4 g/dl (32.0-36.5); MEAN CORPUSCULAR VOLUME 89.6 fl (80.0-96.0); PLATELET COUNT, AUTOMATED 180 10^3/uL (150-450); RED BLOOD COUNT 3.74 10^6/uL (4.00-5.40); RED CELL DISTRIBUTION WIDTH 13.5 % (11.5-14.5); WHITE BLOOD COUNT 12.4 10^3/uL (4.0-10.0)
[2018-05-07 06:41] LABS: ANION GAP 8 MEQ/L (8-16); BLOOD UREA NITROGEN 10 MG/DL (7-18); CALCIUM LEVEL 8.2 MG/DL (8.8-10.2); CARBON DIOXIDE LEVEL 27 MEQ/L (21-32); CHLORIDE LEVEL 106 MEQ/L (98-107); CREATININE FOR GFR 0.35 MG/DL (0.55-1.30); GLOMERULAR FILTRATION RATE > 60.0 (>45); GLUCOSE, FASTING 114 MG/DL (70-100); POTASSIUM SERUM 3.7 MEQ/L (3.5-5.1); SODIUM LEVEL 141 MEQ/L (136-145)
[2018-05-07] MEDS: GABAPENTIN 100 MG CAP PO ×3 (08:23→20:00)
[2018-05-07] MEDS: DOCUSATE SODIUM 100 MG CAP PO ×2 (08:23→19:49)
[2018-05-07] MEDS: SENOKOT S TAB PO ×2 (08:23→19:49)
[2018-05-07] MEDS: D5W/LR 1,000 ML IV (11:28)
[2018-05-08] MEDS: NORCO, ANEXSIA 5/325MG TABLET (HYDROcodone/ACETAMINOPHEN) PO ×2 (01:36→07:31)
[2018-05-08] MEDS: D5W/LR 1,000 ML IV (02:58)
[2018-05-08] MEDS: DOCUSATE SODIUM 100 MG CAP PO (07:29)
[2018-05-08] MEDS: SENOKOT S TAB PO (07:29)
[2018-05-08] MEDS: GABAPENTIN 100 MG CAP PO (07:31)
== END 2018-05-08 14:31 | disposition home or self-care (01) | DRG 271 ==
LOC: M OR 09:06 → M MSPAV 14:55
PROVIDERS: Surgery Vascular Surgery
PROC: 04100JJ Bypass Abdominal Aorta to Left Femoral Artery with Synthetic Substitute, Open Approach (ICD-10-PCS; principal; 2018-05-04 11:05)
DX: I70.213 Atherosclerosis of native arteries of extremities with intermittent claudication, bilateral legs (principal); Z68.1 Body mass index [BMI] 19.9 or less, adult; K50.90 Crohn's disease, unspecified, without complications; I74.19 Embolism and thrombosis of other parts of aorta; J44.9 Chronic obstructive pulmonary disease, unspecified; F17.210 Nicotine dependence, cigarettes, uncomplicated; K44.9 Diaphragmatic hernia without obstruction or gangrene; Z79.899 Other long term (current) drug therapy; M19.90 Unspecified osteoarthritis, unspecified site; E55.9 Vitamin D deficiency, unspecified; Z85.41 Personal history of malignant neoplasm of cervix uteri; I70.0 Atherosclerosis of aorta; I71.4 Abdominal aortic aneurysm, without rupture

== ENCOUNTER → 2018-06-01 | Outpatient (CLI) | payer MEDICARE | LOC: M RAD 09:58 | DX: I73.9 Peripheral vascular disease, unspecified (principal) | CPT/HCPCS: 93926 ==

== ENCOUNTER → 2019-01-23 | Outpatient (CLI) | payer MEDICARE ==
[~2019-01-23] MED LIST changes: +GABA-1171; -GASTROGRAFIN SOLUTION 30ML (Q9963) As Ordered ONE; -ISOVUE-370 76% 100ML VIAL (Q9967) As Ordered ONE; +NORCOTAB PO; +TYLE1TAB5 PO
--- NOTE | 2019-01-23 12:49 | REP ---
Bilateral lower extremity arterial Doppler ultrasound: History: Atherosclerosis. Intermittent claudication. Bypass graft. Axillobifemoral graft. Sonographic findings: Ankle brachial index on the right is 0.9 on the left 0.8. The left axillofemoral and left to right fem-fem crossover graft segments are patent. There is somewhat high velocity in the proximal left axillary graft anastomosis. Mild plaquing is visible in the lower extremity arteries bilaterally. There is evidence of mild narrowing of the proximal to mid superficial femoral artery on the left. Biphasic waveforms are noted throughout the lower extremities. Peak systolic velocity in the left axillary artery is 310 cm/sec. At the proximal anastomoses peak systolic flow velocity is 231 cm/sec. Proximal axillary segment the graft shows a 126 cm/sec. Velocity in the mid graft to 111 cm/sec. The distal graft velocity is 92 cm/sec. A left to right fem-fem crossover graft is seen. In the proximal, left side of the graft velocity is 71.5 cm/sec. At the distal graft anastomoses, peak systolic flow velocity is 57 cm/sec. Velocity chart left lower extremity arteries: Left CF A 51 cm/S Profunda 64 Proximal SFA 76-102 Mid SFA 87 Distal SFA 85 Popliteal 62 Proximal AT A 35 Tibioperoneal trunk 58 Proximal MAINTENANCE CARPENTER 35 Distal MAINTENANCE CARPENTER 19 Distal AT A 19. Velocity chart right lower extremity arteries: Right CF A 49 cm/S Profunda 63 Proximal SFA 88 Mid SFA 88 Distal SFA 87 Popliteal 49 Proximal AT A 20 Tibioperoneal trunk 58 Proximal MAINTENANCE CARPENTER 37 Distal MAINTENANCE CARPENTER 20 Distal AT A 21 Electronically Signed by Cy Hernandes MD 01/23/2019 12:40 P
== END ==
LOC: M RAD 10:22
PROVIDERS: ATTEND Surgery Vascular Surgery
DX: I70.213 Atherosclerosis of native arteries of extremities with intermittent claudication, bilateral legs (principal); Z95.1 Presence of aortocoronary bypass graft

== ENCOUNTER → 2019-03-06 | Outpatient (CLI) | payer MEDICARE ==
[~2019-03-06] MED LIST changes: +HYDR-3715 PO; -NORCOTAB PO
--- NOTE | 2019-03-06 14:54 | REP ---
Bilateral lower extremity arterial Doppler ultrasound: History: Bilateral lower extremity bypass graft. Peripheral vascular disease. Findings: The findings are essentially unchanged from the comparison study dated January 23, 2019. Mildly elevated systolic velocities are seen in the left axillary artery and anastomosis proximally for the axial femoral bypass graft. Ankle brachial indices are 0.86 on the right and left. The systolic velocity in the left axillary artery pre and anastomosis is measured 183 cm/sec today. Post an anastomotic proximal axillofemoral bypass graft PSV is 193 cm/S. At mid graft to the peak systolic flow velocity is 106 cm/sec. Pre and distal anastomoses flow velocity is 125 cm/sec. Fem-fem crossover graft peak systolic flow velocity is 53 cm/sec at mid graft and 42 cm/sec at the distal anastomosis in the right groin. Right lower extremity arterial Doppler velocity chart: CF A 51 cm/S Profunda 45 Proximal SFA 73 Mid SFA 93 Distal SFA 69 Popliteal 68 Proximal AT A 31 Tibioperoneal trunk 44 Proximal FOOD AND BEVERAGE CONTROLLER 39 Distal FOOD AND BEVERAGE CONTROLLER 33 Distal AT A 8 Left lower extremity arterial Doppler velocity chart: CF A 48 cm/S Profunda 50 Proximal SFA 64 Mid SFA 95 Distal SFA 66 Popliteal 42 Proximal AT A 37 Tibioperoneal trunk 39 Proximal FOOD AND BEVERAGE CONTROLLER 43 Distal FOOD AND BEVERAGE CONTROLLER 33 Distal AT A 29 Electronically Signed by Cy Hernandes MD 03/06/2019 02:45 P
== END ==
LOC: M RAD 11:01
PROVIDERS: ATTEND Surgery Vascular Surgery
DX: I73.9 Peripheral vascular disease, unspecified (principal)

== ENCOUNTER → 2019-03-28 | Outpatient (CLI) | payer MEDICARE ==
[2019-03-28 13:18] LABS: HEMATOCRIT 44.2 % (36.0-47.0); HEMOGLOBIN 14.8 g/dl (12.0-15.5); MEAN CORPUSCULAR HGB CONC 33.5 g/dl (32.0-36.5); MEAN CORPUSCULAR VOLUME 95.7 fl (80.0-96.0); PLATELET COUNT, AUTOMATED 298 10^3/uL (150-450); RED BLOOD COUNT 4.62 10^6/uL (4.00-5.40); WHITE BLOOD COUNT 10.8 10^3/uL (4.0-10.0)
[2019-03-28 13:38] LABS: ALBUMIN 3.9 GM/DL (3.2-5.2); ALT/SGPT 28 U/L (12-78); BILIRUBIN,TOTAL 0.3 MG/DL (0.2-1.0); BLOOD UREA NITROGEN 10 MG/DL (7-18); CALCIUM LEVEL 9.2 MG/DL (8.8-10.2); CARBON DIOXIDE LEVEL 27 MEQ/L (21-32); CHLORIDE LEVEL 108 MEQ/L (98-107); CHOLESTEROL LEVEL 190 MG/DL (<200); CHOLESTEROL RISK RATIO 3.015 (<5); CREATININE FOR GFR 0.42 MG/DL (0.55-1.30); GLOMERULAR FILTRATION RATE > 60.0 (>45); GLUCOSE, FASTING 92 MG/DL (70-100); HDL CHOLESTEROL 63 MG/DL (>40); LDL CHOLESTEROL 89 MG/DL (<100); NON-HDL-C 127 MG/DL; POTASSIUM SERUM 4.1 MEQ/L (3.5-5.1); SODIUM LEVEL 140 MEQ/L (136-145); TOTAL PROTEIN 6.8 GM/DL (6.4-8.2); TRIGLYCERIDES LEVEL 188 MG/DL (<150)
== END ==
LOC: M WUC 09:51
PROVIDERS: ATTEND Nurse Practitioner Adult Health
DX: Z00.00 Encounter for general adult medical examination without abnormal findings (principal); K50.90 Crohn's disease, unspecified, without complications; E55.9 Vitamin D deficiency, unspecified

== ENCOUNTER 2019-05-16 22:46 | Emergency (ER) | payer MEDICARE ==
[~2019-05-16] VITALS: Ht 160 cm; Wt 52.3 kg
[2019-05-16] MEDS ORDERED: NS 1,000 ML IV ONE (23:15)
[2019-05-16] MEDS ORDERED: ONDANSETRON 4MG/2ML VIAL (J2405) IV ONE (23:15)
[2019-05-16] MEDS ORDERED: fentaNYL 100 MCG/2 ML INJECTION (J3010) IV ONE (23:15)
[2019-05-16 23:24] LABS: BASO # 0.1 10^3/uL (0.0-0.2); BASO % 0.9 % (0.0-1.0); EOS # 0.2 10^3/uL (0.0-0.50); EOS % 1.8 % (0.0-3.0); HEMATOCRIT 39.7 % (36.0-47.0); HEMOGLOBIN 13.2 g/dl (12.0-15.5); LYMPH # 3.8 10^3/uL (1.5-4.5); LYMPH % 27.9 % (24.0-44.0); MEAN CORPUSCULAR HEMOGLOBIN 31.4 pg (27.0-33.0); MEAN CORPUSCULAR HGB CONC 33.2 g/dl (32.0-36.5); MEAN CORPUSCULAR VOLUME 94.5 fl (80.0-96.0); MONO # 1.1 10^3/uL (0.0-0.8); MONO % 8.2 % (0.0-5.0); NEUTROPHILS # 8.2 10^3/uL (1.8-7.7); NEUTROPHILS % 60.8 % (36.0-66.0); PLATELET COUNT, AUTOMATED 279 10^3/uL (150-450); WHITE BLOOD COUNT 13.5 10^3/uL (4.0-10.0)
[2019-05-16 23:28] LABS: VENOUS BASE EXCESS -3.1 (-2.0-2.0); VENOUS HCO3 21.4 MEQ/L (23.0-27.0); VENOUS O2 SATURATION 98.4 % (60.0-80.0); VENOUS PARTIAL PRESSURE CO2 36.6 mmHg (38.0-50.0); VENOUS PARTIAL PRESSURE O2 132.3 mmHg (30.0-50.0); VENOUS PH 7.385 UNITS (7.330-7.430); VENOUS TOTAL CO2 22.5 MEQ/L (24.0-28.0)
[2019-05-16 23:33] LABS: INR 0.91
[2019-05-16 23:34] LABS: PARTIAL THROMBOPLASTIN TIME 24.5 SECONDS (25.0-38.4)
[2019-05-17 00:06] LABS: BLOOD UREA NITROGEN 16 MG/DL (7-18); CALCIUM LEVEL 8.8 MG/DL (8.8-10.2); CARBON DIOXIDE LEVEL 25 MEQ/L (21-32); CHLORIDE LEVEL 110 MEQ/L (98-107); CK-MB VALUE MASS < 1.0 NG/ML (<3.6); CPK CREATINE PHOSPHOKINASE 52 U/L (26-192); CREATININE FOR GFR 0.69 MG/DL (0.55-1.30); GLOMERULAR FILTRATION RATE > 60.0 (>45); GLUCOSE, FASTING 122 MG/DL (70-100); MAGNESIUM LEVEL 2.1 MG/DL (1.8-2.4); MB/CK RELATIVE INDEX 1.92 (< OR =4); SODIUM LEVEL 142 MEQ/L (136-145); TROPONIN I < 0.02 NG/ML (< 0.10)
[2019-05-17 00:07] LABS: ETHYL ALCOHOL (ETHANOL) < 0.003 % (0.000-0.010)
[2019-05-17] MEDS ORDERED: ISOVUE-370 76% 100ML VIAL (Q9967) As Ordered ONE (00:10)
--- NOTE | 2019-05-17 01:12 | REPVR ---
EXAM: CT Cervical Spine Without Contrast EXAM DATE/TIME: 05/16/2019 11:07 PM CLINICAL HISTORY: 63 years old, female; Injury or trauma; Fall; Initial encounter; Concussion /head injury; Additional info: Syncope TECHNIQUE: Imaging protocol: Axial computed tomography images of the cervical spine without contrast. Coronal and sagittal reformatted images were created and reviewed. Radiation optimization: All CT scans at this facility use at least one of these dose optimization techniques: automated exposure control; mA and/or kV adjustment per patient size (includes targeted exams where dose is matched to clinical indication); or iterative reconstruction. COMPARISON: No relevant prior studies available. FINDINGS: No traumatic segmental malalignment of cervical spine or craniocervical junction. Vertebral body height is maintained at all levels. No acute fracture. No destructive or blastic cervical spine osseous lesion. Developmental non-fusion posterior neural arch of C1. Disc height is decreased at C5-6 and C6-7, with typical degenerative pattern and associated endplate, articular pillar and uncovertebral spurs. Prevertebral soft tissues demonstrate no asymmetry. Apical lung and pleural scarring changes are present. IMPRESSION: No acute fracture or traumatic subluxation of the cervical spine. Multilevel degenerative disc and articular pillar arthropathy. Electronically signed by: Azar Barrera On 05/17/2019 01:12:02 AM
--- NOTE | 2019-05-17 01:14 | REPVR ---
EXAM: CT Head Without Contrast EXAM DATE/TIME: 05/16/2019 11:07 PM CLINICAL HISTORY: 63 years old, female; Injury or trauma; Fall; Additional info: Syncope TECHNIQUE: Imaging protocol: Axial computed tomography images of the head without contrast. Radiation optimization: All CT scans at this facility use at least one of these dose optimization techniques: automated exposure control; mA and/or kV adjustment per patient size (includes targeted exams where dose is matched to clinical indication); or iterative reconstruction. COMPARISON: No relevant prior studies available. FINDINGS: Brain: No intracranial mass, mass effect or midline shift. No acute intracranial hemorrhage. No CT evidence of acute cortical infarct. Ventricles: Ventricles, cisterns, and sulci are normal in size for age. Bones/joints: No calvarial fracture or destructive process. Sinuses: Imaged paranasal sinuses are clear. Mastoid air cells: Mastoid air cells are normally aerated. Orbits: Imaged orbits are unremarkable. Soft tissues: No focal extracranial soft tissue swelling. IMPRESSION: No acute or concerning focal intracranial abnormality. Electronically signed by: Azar Barrera On 05/17/2019 01:14:23 AM
--- NOTE | 2019-05-17 01:19 | REPVR ---
EXAM: CT Maxillofacial Without Contrast EXAM DATE/TIME: 05/16/2019 11:07 PM CLINICAL HISTORY: 63 years old, female; Injury or trauma; Fall; Initial encounter; Concussion /head injury; Loss of consciousness not known; Additional info: Syncope TECHNIQUE: Imaging protocol: Axial computed tomography images of the face without intravenous contrast. Coronal and sagittal reformatted images were created and reviewed. Radiation optimization: All CT scans at this facility use at least one of these dose optimization techniques: automated exposure control; mA and/or kV adjustment per patient size (includes targeted exams where dose is matched to clinical indication); or iterative reconstruction. COMPARISON: No relevant prior studies available. FINDINGS: No focal soft tissue edema. Mandible is intact and the TMJ's align normally. Maxilla, hard palate and pterygoid plates are intact. Zygomaticomaxillary complexes and zygomatic arches appear normal. Maxillary and mandibular carious dental disease changes are present Paranasal sinuses show no acute fracture. Paranasal sinuses show no abnormal opacification. Mastoid air cells are normally aerated. No acute orbital fracture. Orbital soft tissues are unremarkable. No acute nasal bone or nasal septal fracture. Visualized skull base structures are unremarkable. Posterior nasopharynx soft tissues are symmetric. IMPRESSION: No acute facial fracture. Electronically signed by: Azar Barrera On 05/17/2019 01:19:12 AM
--- NOTE | 2019-05-17 01:24 | REPVR ---
EXAM: CT Angiography Abdomen and Pelvis With Contrast EXAM DATE/TIME: 05/16/2019 11:09 PM CLINICAL HISTORY: 63 years old, female; Abdominal pain; Generalized; Prior surgery; Surgery date: 6+ months; Surgery type: Aorta occlusion; Additional info: Abd pain, syncope, HX of aortic occlusion, hypotensive TECHNIQUE: Imaging protocol: Axial computed tomographic angiography images of the abdomen and pelvis with intravenous contrast material. Coronal and sagittal reformatted images were created and reviewed. 3D rendering: MIP reconstructed images were created and reviewed. Radiation optimization: All CT scans at this facility use at least one of these dose optimization techniques: automated exposure control; mA and/or kV adjustment per patient size (includes targeted exams where dose is matched to clinical indication); or iterative reconstruction. Contrast material: ISO; Contrast volume: 100 ml; Contrast route: AC COMPARISON: CT ANGIO ABD/PEL 03/01/2018 6:02 PM FINDINGS: ABDOMEN: Left axillary-femoral graft and a femoral-femoral graft are present. There is retrograde opacification of the external iliac arteries, related to infrarenal aortic occlusion is chronic and unchanged in appearance compared with February 2018. No suspicious mass or airspace process in the visualized lung bases. Liver, spleen, gallbladder and pancreas are unremarkable. Bilateral stable adrenal masses are present. Kidneys show normal enhancement. No bowel obstruction or bowel wall thickening. Portal and splenic veins enhance normally. PELVIS: Multiple fluid-filled loops of nondilated bowel with enhancing mucosa are present. No evidence of acute appendicitis or diverticulitis. Bladder appears normal. Uterus is surgically absent. Bony structures show no acute fracture or destructive process. No enlarged lymph nodes. IMPRESSION: Pattern of small bowel and colon suggests the possibility of mild inflammatory or infectious enteritis without obstruction. Chronic aortic occlusion with axillary-femoral and femoral-femoral grafts appearing patent. No evidence of solid organ or bowel ischemia. Stable bilateral adrenal masses Electronically signed by: Azar Barrera On 05/17/2019 01:23:44 AM
[2019-05-17 01:42] LABS: AMPHETAMINES LEVEL URINE NEGATIVE (NEGATIVE); BARBITURATES URINE NEGATIVE (NEGATIVE); BENZODIAZEPINES URINE NEGATIVE (NEGATIVE); CANNABINOIDS URINE POSITIVE (NEGATIVE); COCAINE METABOLITE URINE NEGATIVE (NEGATIVE); METHADONE URINE NEGATIVE (NEGATIVE); OPIATES URINE NEGATIVE (NEGATIVE); PHENCYCLIDINE URINE NEGATIVE (NEGATIVE)
[2019-05-17] MEDS ORDERED: DERMABOND TOPICAL SKIN ADHESIVE TOP ONE (03:00)
[2019-05-17] MEDS ORDERED: MORPHINE 4 MG/ML 1ML VIAL/SYRINGE (J2270) IV ONE (03:00)
[2019-05-17 03:21] VITALS: BP 117/63
[2019-05-17] MEDS ORDERED: NORCO 5/325MG TABLET (BULK FOR ED) PO ONE (03:30)
--- NOTE | 2019-05-17 05:45 | ECGEPIP ---
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
--- NOTE | 2019-05-17 06:21 | REP ---
Clinical: Syncope/near syncope . Comparison: None . Findings: The mediastinum and cardiac silhouette are stable and within normal limits for portable technique. The lung garcia are clear without acute consolidation, effusion, or pneumothorax. Skeletal structures are intact. Impression: No focal consolidation or effusion. Electronically Signed by Junior Whitley MD 05/17/2019 06:13 A
--- NOTE | 2019-05-21 14:07 | ED PDOC ---
Post-Departure Follow-Up jamie bai faxed formal report of cta abd/p for fu Cassy Lee MD May 21, 2019 14:07
== END 2019-05-17 03:37 | disposition home or self-care (01) ==
LOC: M ED 22:46
DX: R55 Syncope and collapse (principal); S01.91XA Laceration without foreign body of unspecified part of head, initial encounter; S03.41XA Sprain of jaw, right side, initial encounter; W18.12XA Fall from or off toilet with subsequent striking against object, initial encounter; Y92.002 Bathroom of unspecified non-institutional (private) residence as the place of occurrence of the external cause; Y93.9 Activity, unspecified; K50.00 Crohn's disease of small intestine without complications
CPT/HCPCS: 70450; 70486; 71045; 72125; 74174; 80047; 80048; 80307; 81001; 82550; 82553; 82803; 83605; 83735; 84443; 84484; 85025; 85610; 85730; 93005; 93041; 96361; 96374; 96375; 99285; J2270; J2405; J3010; Q9967

== ENCOUNTER → 2021-07-02 | Outpatient (CLI) | payer MEDICARE ==
[2021-07-02 13:35] LABS: HEMATOCRIT 48.7 % (36.0-47.0); HEMOGLOBIN 16.1 g/dl (12.0-15.5); MEAN CORPUSCULAR HEMOGLOBIN 31.4 pg (27.0-33.0); MEAN CORPUSCULAR HGB CONC 33.1 g/dl (32.0-36.5); MEAN CORPUSCULAR VOLUME 94.9 fl (80.0-96.0); PLATELET COUNT, AUTOMATED 275 10^3/uL (150-450); RED BLOOD COUNT 5.13 10^6/uL (4.00-5.40); WHITE BLOOD COUNT 9.7 10^3/uL (4.0-10.0)
[2021-07-02 13:46] LABS: ALT/SGPT 17 U/L (12-78); BILIRUBIN,TOTAL 0.4 MG/DL (0.2-1.0); BLOOD UREA NITROGEN 11 MG/DL (7-18); CARBON DIOXIDE LEVEL 28 MEQ/L (21-32); CHLORIDE LEVEL 108 MEQ/L (98-107); CREATININE FOR GFR 0.42 MG/DL (0.55-1.30); GLOMERULAR FILTRATION RATE > 60.0 (>45); GLUCOSE, FASTING 86 MG/DL (70-100); POTASSIUM SERUM 4.1 MEQ/L (3.5-5.1); SODIUM LEVEL 140 MEQ/L (136-145); TOTAL PROTEIN 7.3 GM/DL (6.4-8.2)
== END ==
LOC: M PLALAB 11:43
PROVIDERS: ATTEND Nurse Practitioner Adult Health
DX: E55.9 Vitamin D deficiency, unspecified (principal)

== ENCOUNTER → 2021-08-04 | Outpatient (CLI) | payer MEDICARE ==
--- NOTE | 2021-08-04 08:58 | REP ---
INDICATION: AAA. COMPARISON: CT 05/17/2019. TECHNIQUE: Real-time sonographic evaluation of the abdominal aorta performed. FINDINGS: There is chronic occlusion of the ectatic abdominal aorta. Maximum AP diameter of abdominal aorta: Proximal (at diaphragm):0.1 cm. At renal artery level: 1.7 cm Mid abdominal aorta:2.5 cm. Distal abdominal aorta (prebifurcation): 1.8 cm. IMPRESSION: Mild ectasia of mid abdominal aorta 2.5 cm. No flow in the abdominal aorta compatible with known chronic occlusion. <Electronically signed by Abdiaziz Humphries > 08/04/21 0830
== END ==
LOC: M RAD 07:17
PROVIDERS: ATTEND Nurse Practitioner Adult Health
DX: I71.4 Abdominal aortic aneurysm, without rupture (principal)

== ENCOUNTER → 2021-08-05 | Outpatient (CLI) | payer MEDICARE ==
--- NOTE | 2021-08-05 16:02 | REPMRS ---
Patient History The patient states she has not had a clinical breast exam in over a year. Patient has history of other cancer at age 27. Family history of colorectal cancer at age 80 in mother, breast cancer at age 64 in sister. No Hormone Replacement Therapy Patient states no breast complaints today. Patient has signed MRS History Sheet. Digital Woman Screen Mammo: August 05, 2021 - Exam #: [id number] Bilateral CC and MLO view(s) were taken. Technologist: Ana María Vigil, Technologist Prior study comparison: May 01, 2019, bilateral digital woman screen mammo performed at [facility]. August 25, 2015, bilateral digital mammo screening bilat, performed at [facility]. FINDINGS: The breast tissue is heterogeneously dense. This may lower the sensitivity of mammography. Screening. Digital screening (2D) mammography was performed bilaterally in the CC and MLO projections. Additionally, breast tomosynthesis (3D mammography) was performed bilaterally in the CC and MLO projections. Todays exam was compared to the prior exam/exams. By history, the patient has no complaints of a palpable breast abnormality or other significant breast complaints. The breasts are unchanged in size and shape. Once again, dense heterogenous fibroglandular elements are seen bilaterally in a stable appearing pattern but to such a degree that the sensitivity of the mammogram in detecting cancer is decreased.There are no aruna-soft tissue densities or spiculated masses. There is no internal architectural distortion. Once again, stable benign appearing calcifications are seen.There are no suspicious aruna-calcific clusters. Skin thickening or nipple retraction is not present. IMPRESSION: BI-RADS Category 2- Benign Findings. There is no evidence of malignant alteration of the breasts. Followup examination recommended in one year. The Volpara volumetric breast density category is C, the breasts are heterogenously dense which may obscure small masses. This mammogram was read with the assistance of [employer],an FDA approved computer aided detection system for mammography. The lifetime Tyrer-Cuzick score is 10.2 % Due to the density of the breasts or Tyrer Cuzick score of 20% or greater, MRI/whole breast screening ultrasound is warranted. Negative x-ray reports should not delay surgical consultation if a dominant or clinically suspicious mass is present. Not all breast cancers can be identified by mammography. Therefore, we recommend that you continue to perform regular breast self-examination and physical examination and then promptly contact your physician of any concerns or changes. Adenosis and dense breasts may obscure an underlying neoplasm. Assessment: BI-RADS/ACR category 2 mammogram. Benign Findings. Recommendation Routine screening mammogram of both breasts in 1 year. Electronically Signed By: Tuan Landeros DO 08/05/21 4410
== END ==
LOC: M WHC 15:14
PROVIDERS: ATTEND Nurse Practitioner Adult Health
DX: Z12.31 Encounter for screening mammogram for malignant neoplasm of breast (principal)

== ENCOUNTER → 2021-09-14 | Outpatient (CLI) | payer MEDICARE ==
--- NOTE | 2021-09-14 15:11 | REP ---
INDICATION: CLAUDICATION COMPARISON: 03/06/2019. TECHNIQUE: Real time humphries scale and Duplex Doppler evaluation of the bilateral lower extremity arterial vasculature using linear high frequency transducer. FINDINGS: Humphries scale and duplex doppler images demonstrate SETH bilaterally 0.26. There is an occluded left axillary to femoral/femoral bypass graft. There is a very small 1 centimeter segment within the proximal aspect of the bypass graft which demonstrates flow. Collateral vessels are seen feeding the bilateral common femoral arteries. Subsequent inflow into the bilateral lower extremity arterial system is monophasic and very slow. Minimal scattered plaque is seen bilaterally with no stenosis of the bilateral lower extremity arterial structures. Peak systolic velocities (cm/sec) Common femoral artery: Right 45; Left 34 Profunda femoris: Right 15; Left 28 SFA (proximal): Right 36; Left 39 SFA (mid): Right 31; Left 36 SFA (distal): Right 23; Left 21 Popliteal artery: Right 30; Left 23 SALLY (prox.): Right 12; Left 18 Tibioperoneal trunk: Right 15; Left 13 WINDOW AIR CONDITIONER INSTALLER (prox.): Right 18; Left 13 WINDOW AIR CONDITIONER INSTALLER (distal): Right 29; Left 6 SALLY (distal): Right 16; Left 5 IMPRESSION: There is occluded left axillary to femoral/femoral bypass graft. Low velocity collateral flow feeds both common femoral arteries with no stenosis of the bilateral lower extremity arterial system. <Electronically signed by Abdiaziz Humphries > 09/14/21 1785
== END ==
LOC: M RAD 12:26
PROVIDERS: ATTEND Surgery Vascular Surgery
DX: I70.213 Atherosclerosis of native arteries of extremities with intermittent claudication, bilateral legs (principal)

== ENCOUNTER → 2021-10-22 | Outpatient (CLI) | payer MEDICARE ==
[2021-10-22 11:28] LABS: HEMATOCRIT 45.1 % (36.0-47.0); HEMOGLOBIN 14.7 g/dl (12.0-15.5); MEAN CORPUSCULAR HEMOGLOBIN 31.5 pg (27.0-33.0); MEAN CORPUSCULAR HGB CONC 32.6 g/dl (32.0-36.5); MEAN CORPUSCULAR VOLUME 96.6 fl (80.0-96.0); PLATELET COUNT, AUTOMATED 352 10^3/uL (150-450); RED BLOOD COUNT 4.67 10^6/uL (4.00-5.40); WHITE BLOOD COUNT 8.4 10^3/uL (4.0-10.0)
[2021-10-22 11:41] LABS: INR 0.87; PROTHROMBIN TIME 12.3 SECONDS (12.7-14.5)
[2021-10-22 11:42] LABS: PARTIAL THROMBOPLASTIN TIME 27.9 SECONDS (25.9-37.0)
[2021-10-22 12:08] LABS: ALBUMIN 3.9 GM/DL (3.2-5.2); ALT/SGPT 19 U/L (12-78); BILIRUBIN,DIRECT 0.1 MG/DL (0.0-0.2); BILIRUBIN,TOTAL 0.4 MG/DL (0.2-1.0); BLOOD UREA NITROGEN 14 MG/DL (7-18); CALCIUM LEVEL 9.9 MG/DL (8.8-10.2); CARBON DIOXIDE LEVEL 27 MEQ/L (21-32); CHLORIDE LEVEL 106 MEQ/L (98-107); CREATININE FOR GFR 0.49 MG/DL (0.55-1.30); GLOMERULAR FILTRATION RATE > 60.0 (>45); GLUCOSE, FASTING 92 MG/DL (70-100); PHOSPHORUS LEVEL 3.5 MG/DL (2.5-4.9); POTASSIUM SERUM 5.2 MEQ/L (3.5-5.1); SODIUM LEVEL 140 MEQ/L (136-145); TOTAL PROTEIN 7.3 GM/DL (6.4-8.2)
== END ==
LOC: M LAB 10:00
PROVIDERS: ATTEND Internal Medicine
DX: I70.0 Atherosclerosis of aorta (principal)

== ENCOUNTER → 2021-10-23 | Outpatient (CLI) | payer MEDICARE ==
[~2021-10-23] MED LIST changes: +ACETAMINOPHEN 500 MG TAB PO PRN; +ISOVUE-300 61% 50ML VIAL As Ordered ONE; +LIDOCAINE 1% MDV 20ML VIAL As Ordered ONE; +MIDAZOLAM INJ 2MG/2ML VIAL (J2250 PER 1MG) As Ordered ONE; +NITROGLYCERIN IN D5W 25MG/250ML (100MCG/ML) As Ordered ONE; +NS 1,000 ML IV SCH; +VERAPAMIL 5MG/2ML VIAL As Ordered ONE; +ceFAZolin 1GM VIAL (J0690 PER 500MG) As Ordered ONE; +ceFAZolin SOD 1 GM in D5W MINI-BAG PLUS 50 ML IV ONE; +fentaNYL 100 MCG/2 ML INJECTION As Ordered ONE; +hydrALAZINE 20MG/ML 1ML VIAL (J0360 PER 20MG) As Ordered ONE; +hydrALAZINE 20MG/ML 1ML VIAL (J0360 PER 20MG) IV ONE; +hydrALAZINE 20MG/ML 1ML VIAL (J0360 PER 20MG) IV SCH
[2021-10-23 11:54] VITALS: BP 162/78
[2021-10-23 15:00] VITALS: BP 128/83
== END ==
LOC: M IRPRO 06:57
PROVIDERS: ATTEND Surgery Vascular Surgery
DX: I70.223 Atherosclerosis of native arteries of extremities with rest pain, bilateral legs (principal); I70.0 Atherosclerosis of aorta; I70.1 Atherosclerosis of renal artery; T82.868A Thrombosis due to vascular prosthetic devices, implants and grafts, initial encounter; D48.5 Neoplasm of uncertain behavior of skin; E78.2 Mixed hyperlipidemia; K50.00 Crohn's disease of small intestine without complications; X58.XXXA Exposure to other specified factors, initial encounter; Z72.0 Tobacco use
CPT/HCPCS: 36200; 75630; C1769; C1887; C1894; J0360; J0690; J1644; J2250; J3010; Q9967

== ENCOUNTER → 2022-02-12 | Outpatient (CLI) | payer MEDICARE ==
[~2022-02-12] MED LIST changes: -ACETAMINOPHEN 500 MG TAB PO PRN; -ISOVUE-300 61% 50ML VIAL As Ordered ONE; -LIDOCAINE 1% MDV 20ML VIAL As Ordered ONE; -MIDAZOLAM INJ 2MG/2ML VIAL (J2250 PER 1MG) As Ordered ONE; -NITROGLYCERIN IN D5W 25MG/250ML (100MCG/ML) As Ordered ONE; -NS 1,000 ML IV SCH; -VERAPAMIL 5MG/2ML VIAL As Ordered ONE; -ceFAZolin 1GM VIAL (J0690 PER 500MG) As Ordered ONE; -ceFAZolin SOD 1 GM in D5W MINI-BAG PLUS 50 ML IV ONE; -fentaNYL 100 MCG/2 ML INJECTION As Ordered ONE; -hydrALAZINE 20MG/ML 1ML VIAL (J0360 PER 20MG) As Ordered ONE; -hydrALAZINE 20MG/ML 1ML VIAL (J0360 PER 20MG) IV ONE; -hydrALAZINE 20MG/ML 1ML VIAL (J0360 PER 20MG) IV SCH
== END ==
LOC: M RAD 16:53
PROVIDERS: ATTEND Surgery Vascular Surgery
DX: Z01.818 Encounter for other preprocedural examination (principal); I70.213 Atherosclerosis of native arteries of extremities with intermittent claudication, bilateral legs

== ENCOUNTER → 2022-04-16 | Outpatient (CLI) | payer MEDICARE ==
[2022-04-16 12:57] LABS: HEMOGLOBIN 12.9 g/dl (12.0-15.5); MEAN CORPUSCULAR HEMOGLOBIN 30.1 pg (27.0-33.0); MEAN CORPUSCULAR HGB CONC 31.5 g/dl (32.0-36.5); MEAN CORPUSCULAR VOLUME 95.8 fl (80.0-96.0); PLATELET COUNT, AUTOMATED 342 10^3/uL (150-450); RED BLOOD COUNT 4.28 10^6/uL (4.00-5.40); WHITE BLOOD COUNT 7.7 10^3/uL (4.0-10.0)
[2022-04-16 13:21] LABS: ALBUMIN 3.5 GM/DL (3.2-5.2); ALT/SGPT 20 U/L (12-78); BILIRUBIN,TOTAL 0.4 MG/DL (0.2-1.0); BLOOD UREA NITROGEN 17 MG/DL (7-18); CALCIUM LEVEL 9.6 MG/DL (8.8-10.2); CARBON DIOXIDE LEVEL 28 MEQ/L (21-32); CHLORIDE LEVEL 109 MEQ/L (98-107); CHOLESTEROL LEVEL 198 MG/DL (<200); CHOLESTEROL RISK RATIO 2.712 (<5); CREATININE FOR GFR 0.58 MG/DL (0.55-1.30); GLOMERULAR FILTRATION RATE > 60.0 (>45); GLUCOSE, FASTING 98 MG/DL (70-100); HDL CHOLESTEROL 73 MG/DL (>40); LDL CHOLESTEROL 96 MG/DL (<100); NON-HDL-C 125 MG/DL; POTASSIUM SERUM 4.4 MEQ/L (3.5-5.1); SODIUM LEVEL 143 MEQ/L (136-145); TOTAL 25(OH) VITAMIN D 26.5 NG/ML (30.0-100.0); TOTAL PROTEIN 6.8 GM/DL (6.4-8.2); TRIGLYCERIDES LEVEL 145 MG/DL (<150)
== END ==
LOC: M WUC 09:24
PROVIDERS: ATTEND Nurse Practitioner Adult Health
DX: E55.9 Vitamin D deficiency, unspecified (principal); Z13.29 Encounter for screening for other suspected endocrine disorder; I73.9 Peripheral vascular disease, unspecified; Z79.899 Other long term (current) drug therapy

== ENCOUNTER → 2022-11-01 | Outpatient (CLI) | payer MEDICARE | LOC: M WHC 11:11 | PROVIDERS: ATTEND Nurse Practitioner Adult Health | DX: Z12.31 Encounter for screening mammogram for malignant neoplasm of breast (principal); N63.20 Unspecified lump in the left breast, unspecified quadrant ==

== ENCOUNTER → 2022-11-24 | Outpatient (CLI) | payer MEDICARE | LOC: M WHC 10:56 | PROVIDERS: ATTEND Nurse Practitioner Adult Health | DX: R92.8 Other abnormal and inconclusive findings on diagnostic imaging of breast (principal) | CPT/HCPCS: 77065; G0279 ==

== ENCOUNTER → 2023-01-26 | Outpatient (CLI) | payer MEDICARE | LOC: M RAD 13:55 | PROVIDERS: ATTEND Surgery Vascular Surgery | DX: I73.9 Peripheral vascular disease, unspecified (principal); Z95.828 Presence of other vascular implants and grafts ==

== ENCOUNTER → 2023-05-19 | Outpatient (CLI) | payer MEDICARE ==
[2023-05-19 13:44] LABS: HEMATOCRIT 43.1 % (36.0-47.0); HEMOGLOBIN 13.8 g/dl (12.0-15.5); MEAN CORPUSCULAR HEMOGLOBIN 29.9 pg (27.0-33.0); MEAN CORPUSCULAR VOLUME 93.5 fl (80.0-96.0); PLATELET COUNT, AUTOMATED 339 10^3/uL (150-450); RED BLOOD COUNT 4.61 10^6/uL (4.00-5.40); WHITE BLOOD COUNT 7.9 10^3/uL (4.0-10.0)
[2023-05-19 13:52] LABS: ALBUMIN 3.8 G/DL (3.2-5.2); ALKALINE PHOSPHATASE 121 U/L (46-116); ALT/SGPT 13 U/L (7.0-40); AST/SGOT < 8 U/L (<34); BILIRUBIN,TOTAL 0.4 MG/DL (0.3-1.2); BLOOD UREA NITROGEN 13 MG/DL (9-23); CALCIUM LEVEL 9.9 MG/DL (8.3-10.6); CARBON DIOXIDE LEVEL 27 MMOL/L (20-31); CHLORIDE LEVEL 107 MMOL/L (98-107); CREATININE FOR GFR 0.59 MG/DL (0.55-1.30); GLOMERULAR FILTRATION RATE > 60.0 (>45); GLUCOSE, FASTING 95 MG/DL (74-106); POTASSIUM SERUM 4.1 MMOL/L (3.5-5.1); SODIUM LEVEL 139 MMOL/L (136-145); TOTAL PROTEIN 6.6 G/DL (5.7-8.2)
== END ==
LOC: M WUC 10:00
PROVIDERS: ATTEND Nurse Practitioner Adult Health
DX: I73.9 Peripheral vascular disease, unspecified (principal)

== ENCOUNTER → 2023-10-05 | Outpatient (CLI) | payer MEDICARE ==
[2023-10-05 10:01] LABS: HEMATOCRIT 43.9 % (36.0-47.0); HEMOGLOBIN 14.4 g/dl (12.0-15.5); MEAN CORPUSCULAR HEMOGLOBIN 30.6 pg (27.0-33.0); MEAN CORPUSCULAR HGB CONC 32.8 g/dl (32.0-36.5); MEAN CORPUSCULAR VOLUME 93.2 fl (80.0-96.0); PLATELET COUNT, AUTOMATED 297 10^3/uL (150-450); RED BLOOD COUNT 4.71 10^6/uL (4.00-5.40); WHITE BLOOD COUNT 8.3 10^3/uL (4.0-10.0)
[2023-10-05 10:34] LABS: ALBUMIN 3.9 G/DL (3.2-5.2); ALKALINE PHOSPHATASE 118 U/L (46-116); ALT/SGPT 16 U/L (7.0-40); AST/SGOT 12 U/L (<34); BILIRUBIN,TOTAL 0.6 MG/DL (0.3-1.2); BLOOD UREA NITROGEN 14 MG/DL (9-23); CALCIUM LEVEL 9.6 MG/DL (8.3-10.6); CARBON DIOXIDE LEVEL 28 MMOL/L (20-31); CHLORIDE LEVEL 107 MMOL/L (98-107); CHOLESTEROL LEVEL 157 MG/DL (<200); CHOLESTEROL RISK RATIO 2.15 (<5); CREATININE FOR GFR 0.62 MG/DL (0.55-1.30); GLOMERULAR FILTRATION RATE > 60.0 (>45); GLUCOSE, FASTING 91 MG/DL (74-106); HDL CHOLESTEROL 72.7 MG/DL (>40); LDL CHOLESTEROL 61.9 MG/DL (<100); NON-HDL-C 84.3 MG/DL; POTASSIUM SERUM 4.5 MMOL/L (3.5-5.1); SODIUM LEVEL 144 MMOL/L (136-145); THYROID STIMULATING HORMONE 1.831 uIU/ML (0.55-4.78); TOTAL 25(OH) VITAMIN D 105.9 NG/ML (20.0-100.0); TOTAL PROTEIN 6.9 G/DL (5.7-8.2); TRIGLYCERIDES LEVEL 112 MG/DL (<150)
== END ==
LOC: M WUC 08:15
PROVIDERS: ATTEND Nurse Practitioner Adult Health
DX: I73.9 Peripheral vascular disease, unspecified (principal); Z13.29 Encounter for screening for other suspected endocrine disorder; E55.9 Vitamin D deficiency, unspecified; Z79.899 Other long term (current) drug therapy

== ENCOUNTER 2024-03-08 12:59 | Emergency (ER) | payer MEDICARE ==
[~2024-03-08] VITALS: Ht 160 cm; Wt 53.5 kg
[2024-03-08 13:15] VITALS: BP 169/102; O2SAT 99
[2024-03-08] MEDS ORDERED: ISOVUE-370 76% 100ML VIAL As Ordered ONE (13:19)
[2024-03-08 13:29] LABS: BASO # 0.1 10^3/uL (0.0-0.2); BASO % 0.8 % (0.0-1.0); EOS # 0.1 10^3/uL (0.0-0.5); EOS % 0.7 % (0.0-3.0); HEMATOCRIT 40.8 % (36.0-47.0); HEMOGLOBIN 13.7 g/dl (12.0-15.5); LYMPH # 2.1 10^3/uL (1.5-5.0); LYMPH % 20.4 % (24.0-44.0); MEAN CORPUSCULAR HEMOGLOBIN 30.5 pg (27.0-33.0); MEAN CORPUSCULAR HGB CONC 33.6 g/dl (32.0-36.5); MEAN CORPUSCULAR VOLUME 90.9 fl (80.0-96.0); MONO # 0.8 10^3/uL (0.0-0.8); MONO % 7.7 % (2.0-8.0); NEUTROPHILS # 7.1 10^3/uL (1.5-8.5); NEUTROPHILS % 70.2 % (36.0-66.0); PLATELET COUNT, AUTOMATED 329 10^3/uL (150-450); RED BLOOD COUNT 4.49 10^6/uL (4.00-5.40); WHITE BLOOD COUNT 10.1 10^3/uL (4.0-10.0)
[2024-03-08 13:32] VITALS: BP 173/83; O2SAT 99
[2024-03-08] MEDS: NS 1,000 ML IV ONE (13:34)
[2024-03-08 13:43] LABS: INR 0.91
[2024-03-08 13:45] VITALS: BP 170/82; O2SAT 99
[2024-03-08 13:53] LABS: CK-MB VALUE MASS < 1.0 NG/ML (<3.6)
[2024-03-08 13:57] LABS: ALBUMIN 3.8 G/DL (3.2-5.2); ALKALINE PHOSPHATASE 128 U/L (46-116); ALT/SGPT 20 U/L (7.0-40); AST/SGOT 15 U/L (<34); BILIRUBIN,TOTAL 0.4 MG/DL (0.3-1.2); BLOOD UREA NITROGEN 15 MG/DL (9-23); CALCIUM LEVEL 9.2 MG/DL (8.3-10.6); CARBON DIOXIDE LEVEL 21 MMOL/L (20-31); CHLORIDE LEVEL 108 MMOL/L (98-107); CREATININE FOR GFR 0.87 MG/DL (0.55-1.30); GLOMERULAR FILTRATION RATE > 60.0 (>45); GLUCOSE, FASTING 139 MG/DL (74-106); MAGNESIUM LEVEL 1.8 MG/DL (1.8-2.4); POTASSIUM SERUM 3.9 MMOL/L (3.5-5.1); SODIUM LEVEL 141 MMOL/L (136-145); TOTAL PROTEIN 6.8 G/DL (5.7-8.2)
[2024-03-08 14:06] LABS: CPK CREATINE PHOSPHOKINASE 45 U/L (34-145); MB/CK RELATIVE INDEX 2.22 (< OR =4)
[2024-03-08] MEDS ORDERED: HEPARIN SOD (PORCINE) 5000UNITS/ML 1ML VIAL/SYRINGE IV ONE (14:25)
[2024-03-08] MEDS ORDERED: HEPARIN DRIP 25,000 UNITS in IV 1 EA IV SCH (14:25)
[2024-03-08] MEDS ORDERED: HEPARIN SOD (PORCINE) 5000UNITS/ML 1ML VIAL/SYRINGE IV PRN ×2 (14:25→14:35)
[2024-03-08] MEDS: ASPIRIN 81MG CHEW TABLET PO ONE (14:50)
[2024-03-08] MEDS: HEPARIN DRIP 25,000 UNITS in IV 1 EA IV SCH (14:54)
[2024-03-08] MEDS: HEPARIN SOD (PORCINE) 5000UNITS/ML 1ML VIAL/SYRINGE IV ONE (14:56)
[2024-03-08 15:01] VITALS: BP 156/72; O2SAT 97
[2024-03-08 20:15] VITALS: TEMP 98
[2024-03-08 22:30] VITALS: BP 151/74; O2SAT 98
== END 2024-03-08 22:34 | disposition short-term general hospital (02) ==
LOC: M ED 12:59
DX: M62.22 Nontraumatic ischemic infarction of muscle, upper arm (principal); I25.119 Atherosclerotic heart disease of native coronary artery with unspecified angina pectoris; F12.10 Cannabis abuse, uncomplicated; Z87.891 Personal history of nicotine dependence; Z79.1 Long term (current) use of non-steroidal anti-inflammatories (NSAID)
CPT/HCPCS: 70450; 71045; 73206; 80047; 80053; 82550; 82553; 83735; 84484; 85025; 85610; 85730; 93005; 93041; 94760; 96374; 96376; 99285; Q9967

== ENCOUNTER → 2024-04-25 | Outpatient (REF) | payer MEDICARE | LOC: M WUC 19:08 | PROVIDERS: ATTEND Nurse Practitioner Family | DX: L03.114 Cellulitis of left upper limb (principal) ==

== ENCOUNTER 2024-07-24 15:48 | Inpatient (IN) | payer MEDICARE ==
[~2024-07-24] VITALS: Ht 160 cm; Wt 50.5 kg
[2024-07-24] MEDS ORDERED: ROSU10TA61 PO (15:56)
[2024-07-24] MEDS ORDERED: XARE20TA PO (15:56)
[2024-07-24] MEDS ORDERED: GABA-1171 PO (15:56)
[2024-07-24] MEDS ORDERED: ISOVUE-370 76% 100ML VIAL As Ordered ONE (17:14)
[2024-07-24 17:34] LABS: BASO # 0.1 10^3/uL (0.0-0.2); BASO % 0.8 % (0.0-1.0); EOS # 0.1 10^3/uL (0.0-0.5); EOS % 0.5 % (0.0-3.0); HEMATOCRIT 40.4 % (36.0-47.0); HEMOGLOBIN 12.8 g/dl (12.0-15.5); LYMPH # 1.7 10^3/uL (1.5-5.0); MEAN CORPUSCULAR HEMOGLOBIN 27.8 pg (27.0-33.0); MEAN CORPUSCULAR HGB CONC 31.7 g/dl (32.0-36.5); MEAN CORPUSCULAR VOLUME 87.8 fl (80.0-96.0); MONO # 0.7 10^3/uL (0.0-0.8); MONO % 7.3 % (2.0-8.0); NEUTROPHILS # 7.5 10^3/uL (1.5-8.5); NEUTROPHILS % 74.1 % (36.0-66.0); PLATELET COUNT, AUTOMATED 422 10^3/uL (150-450); WHITE BLOOD COUNT 10.1 10^3/uL (4.0-10.0)
[2024-07-24 17:40] LABS: INR 0.98; PARTIAL THROMBOPLASTIN TIME 28.6 SECONDS (24.8-34.2); PROTHROMBIN TIME 12.7 SECONDS (12.5-14.5)
[2024-07-24] MEDS ORDERED: CLOP75TA2 PO (19:27)
[2024-07-24] MEDS ORDERED: HOME MED LIST COMPLETE! XX SCH (19:30)
[2024-07-24] MEDS: DOCUSATE SODIUM 100MG CAPSULE PO SCH (21:00)
[2024-07-24] MEDS ORDERED: MOM 30ML SUSPENSION UDC PO PRN (21:00)
[2024-07-24] MEDS: GABAPENTIN 100 MG CAP PO SCH (21:39)
[2024-07-24 22:03] LABS: INR 0.99; PROTHROMBIN TIME 12.8 SECONDS (12.5-14.5)
[2024-07-24 23:20] VITALS: BP 115/82; TEMP 97.2; O2SAT 98
[2024-07-25] VITALS (8 sets, daily range): BP systolic 114–161; BP diastolic 70–90; TEMP 97.3–98.2; O2SAT 93–98
[2024-07-25 06:03] LABS: HEMATOCRIT 37.8 % (36.0-47.0); HEMOGLOBIN 11.9 g/dl (12.0-15.5); MEAN CORPUSCULAR HEMOGLOBIN 27.7 pg (27.0-33.0); MEAN CORPUSCULAR HGB CONC 31.5 g/dl (32.0-36.5); MEAN CORPUSCULAR VOLUME 88.1 fl (80.0-96.0); PLATELET COUNT, AUTOMATED 360 10^3/uL (150-450); RED BLOOD COUNT 4.29 10^6/uL (4.00-5.40); WHITE BLOOD COUNT 8.5 10^3/uL (4.0-10.0)
[2024-07-25 06:23] LABS: BLOOD UREA NITROGEN 13 MG/DL (9-23); CALCIUM LEVEL 8.9 MG/DL (8.3-10.6); CARBON DIOXIDE LEVEL 24 MMOL/L (20-31); CHLORIDE LEVEL 108 MMOL/L (98-107); CREATININE FOR GFR 0.53 MG/DL (0.55-1.30); GLOMERULAR FILTRATION RATE > 60.0 (>45); GLUCOSE, FASTING 98 MG/DL (74-106); POTASSIUM SERUM 4.1 MMOL/L (3.5-5.1); SODIUM LEVEL 139 MMOL/L (136-145)
[2024-07-25] MEDS: ROSUVASTATIN 10 MG TAB (CRESTOR) PO SCH (08:54)
[2024-07-25] MEDS: RIVAROXABAN 20MG TAB (XARELTO) PO ONE (17:04)
[2024-07-25] MEDS: ACETAMINOPHEN TAB 650MG DOSE (2X325MG) PO PRN (21:22)
[2024-07-26 04:45] VITALS: BP 117/64; TEMP 97.9; O2SAT 97
[2024-07-26 11:00] VITALS: O2SAT 95
[2024-07-26 12:00] VITALS: BP 107/64; TEMP 97.3; O2SAT 98
[2024-07-26 20:15] VITALS: BP 104/63; TEMP 97.7; O2SAT 95
[2024-07-26] MEDS: RAMELTEON 8 MG TAB (ROZEREM) PO PRN (20:54)
[2024-07-26 22:00] VITALS: O2SAT 94
[2024-07-27] VITALS (7 sets, daily range): BP systolic 102–125; BP diastolic 62–75; TEMP 97.2–97.3; O2SAT 94–97
[2024-07-27 05:35] LABS: BASO # 0.1 10^3/uL (0.0-0.2); BASO % 0.7 % (0.0-1.0); EOS # 0.1 10^3/uL (0.0-0.5); EOS % 1.1 % (0.0-3.0); HEMATOCRIT 36.6 % (36.0-47.0); HEMOGLOBIN 11.4 g/dl (12.0-15.5); LYMPH # 1.3 10^3/uL (1.5-5.0); LYMPH % 14.2 % (24.0-44.0); MEAN CORPUSCULAR HEMOGLOBIN 27.2 pg (27.0-33.0); MEAN CORPUSCULAR HGB CONC 31.1 g/dl (32.0-36.5); MEAN CORPUSCULAR VOLUME 87.4 fl (80.0-96.0); MONO # 0.8 10^3/uL (0.0-0.8); MONO % 8.7 % (2.0-8.0); PLATELET COUNT, AUTOMATED 363 10^3/uL (150-450); RED BLOOD COUNT 4.19 10^6/uL (4.00-5.40); WHITE BLOOD COUNT 9.4 10^3/uL (4.0-10.0)
[2024-07-27 06:02] LABS: ALBUMIN 3.4 G/DL (3.2-5.2); ALKALINE PHOSPHATASE 139 U/L (46-116); ALT/SGPT 17 U/L (7.0-40); AST/SGOT 16 U/L (<34); BILIRUBIN,TOTAL 0.3 MG/DL (0.3-1.2); BLOOD UREA NITROGEN 21 MG/DL (9-23); CALCIUM LEVEL 9.3 MG/DL (8.3-10.6); CARBON DIOXIDE LEVEL 25 MMOL/L (20-31); CHLORIDE LEVEL 109 MMOL/L (98-107); CREATININE FOR GFR 0.55 MG/DL (0.55-1.30); GLOMERULAR FILTRATION RATE > 60.0 (>45); GLUCOSE, FASTING 104 MG/DL (74-106); POTASSIUM SERUM 4.3 MMOL/L (3.5-5.1); SODIUM LEVEL 141 MMOL/L (136-145); TOTAL PROTEIN 6.7 G/DL (5.7-8.2)
[2024-07-27] MEDS ORDERED: fentaNYL 100 MCG/2 ML INJECTION As Ordered ONE (08:07)
[2024-07-27] MEDS ORDERED: MIDAZOLAM INJ 2MG/2ML VIAL As Ordered ONE (08:07)
[2024-07-27] MEDS ORDERED: LIDOCAINE 1% MDV 20ML VIAL As Ordered ONE (08:07)
[2024-07-27] MEDS ORDERED: PERCOCET 5MG/325MG TAB PO PRN (09:45)
[2024-07-27] MEDS ORDERED: ONDANSETRON 4MG 2ML VIAL IV PRN (09:45)
== END 2024-07-27 16:39 | disposition home or self-care (01) | DRG 204 ==
LOC: M ED 15:48 → M ED INP 20:58 → M MSPAV 23:08
PROVIDERS: ADMIT Student in an Organized Health Care Education/Training Program; ATTEND Hospitalist
PROC: 0BBC3ZX Excision of Right Upper Lung Lobe, Percutaneous Approach, Diagnostic (ICD-10-PCS; principal; 2024-07-27 08:00)
DX: R04.2 Hemoptysis (principal); K50.90 Crohn's disease, unspecified, without complications; R91.8 Other nonspecific abnormal finding of lung field; I73.9 Peripheral vascular disease, unspecified; M85.88 Other specified disorders of bone density and structure, other site; G62.9 Polyneuropathy, unspecified; E78.5 Hyperlipidemia, unspecified; K44.9 Diaphragmatic hernia without obstruction or gangrene; D64.9 Anemia, unspecified; Z87.891 Personal history of nicotine dependence; Z90.79 Acquired absence of other genital organ(s); Z95.828 Presence of other vascular implants and grafts; Z79.899 Other long term (current) drug therapy; Z79.01 Long term (current) use of anticoagulants

== ENCOUNTER → 2024-08-21 | Outpatient (CLI) | payer MEDICARE ==
[~2024-08-21] MED LIST changes: +CLOP75TA2 PO; +GABA-1171 PO; +ROSU10TA61 PO; +XARE20TA PO
[2024-08-21 15:47] LABS: HEMATOCRIT 37.4 % (36.0-47.0); HEMOGLOBIN 11.5 g/dl (12.0-15.5); MEAN CORPUSCULAR HEMOGLOBIN 27.1 pg (27.0-33.0); MEAN CORPUSCULAR HGB CONC 30.7 g/dl (32.0-36.5); MEAN CORPUSCULAR VOLUME 88.2 fl (80.0-96.0); PLATELET COUNT, AUTOMATED 430 10^3/uL (150-450); RED BLOOD COUNT 4.24 10^6/uL (4.00-5.40); WHITE BLOOD COUNT 9.9 10^3/uL (4.0-10.0)
[2024-08-21 16:09] LABS: ALBUMIN 3.4 G/DL (3.2-5.2); ALKALINE PHOSPHATASE 162 U/L (46-116); ALT/SGPT 9 U/L (7.0-40); AST/SGOT 11 U/L (<34); BILIRUBIN,TOTAL 0.4 MG/DL (0.3-1.2); BLOOD UREA NITROGEN 14 MG/DL (9-23); CALCIUM LEVEL 9.2 MG/DL (8.3-10.6); CARBON DIOXIDE LEVEL 25 MMOL/L (20-31); CHLORIDE LEVEL 106 MMOL/L (98-107); CREATININE FOR GFR 0.59 MG/DL (0.55-1.30); GLOMERULAR FILTRATION RATE > 60.0 (>45); GLUCOSE, FASTING 98 MG/DL (74-106); IRON (FE) 28 UG/DL (50-170); PERCENT SATURATION 9.3 % (13.2-45.0); POTASSIUM SERUM 3.5 MMOL/L (3.5-5.1); SODIUM LEVEL 140 MMOL/L (136-145); TOTAL IRON BINDING CAPACITY 302 UG/DL (250-425); TOTAL PROTEIN 7.2 G/DL (5.7-8.2)
== END ==
LOC: M PLALAB 13:37
PROVIDERS: ATTEND Nurse Practitioner Adult Health
DX: Z09 Encounter for follow-up examination after completed treatment for conditions other than malignant neoplasm (principal); M51.360 Other intervertebral disc degeneration, lumbar region with discogenic back pain only; R04.2 Hemoptysis; K50.90 Crohn's disease, unspecified, without complications

== ENCOUNTER → 2024-09-17 | Outpatient (CLI) | payer MEDICARE | LOC: M PLARAD 12:04 | PROVIDERS: ATTEND Specialist | DX: R91.8 Other nonspecific abnormal finding of lung field (principal) | CPT/HCPCS: 78815; A9552 ==

== ENCOUNTER → 2024-09-19 | Outpatient (CLI) | payer MEDICARE ==
[~2024-09-19] VITALS: Ht 160 cm; Wt 46.0 kg
[~2024-09-19] MED LIST changes: +LIDOCAINE 1% MDV 20ML VIAL As Ordered ONE; +MIDAZOLAM INJ 2MG/2ML VIAL As Ordered ONE; +NS 250 ML IV SCH; +ceFAZolin 2 GM/D5W 50 ML IV BAG As Ordered ONE; +fentaNYL 100 MCG/2 ML INJECTION As Ordered ONE
[2024-09-19 07:45] VITALS: TEMP 98.6
[2024-09-19] MEDS: ceFAZolin SOD 2 GM in IV 1 EA IV ONE (08:22)
[2024-09-19 09:35] VITALS: BP 112/56; O2SAT 98
== END ==
LOC: M IRPRO 07:42
PROVIDERS: ATTEND Specialist
DX: R91.8 Other nonspecific abnormal finding of lung field (principal); C34.90 Malignant neoplasm of unspecified part of unspecified bronchus or lung
CPT/HCPCS: 36561; 99152; 99153; C1894; J0690; J1642; J2250; J3010

== ENCOUNTER → 2024-09-21 | Outpatient (CLI) | payer MEDICARE ==
[~2024-09-21] MED LIST changes: +ACET-897 PO; +HOME MED LIST COMPLETE! XX SCH; -MIDAZOLAM INJ 2MG/2ML VIAL As Ordered ONE; -NS 250 ML IV SCH; +RA S PO; -ceFAZolin 2 GM/D5W 50 ML IV BAG As Ordered ONE; -fentaNYL 100 MCG/2 ML INJECTION As Ordered ONE
[2024-09-21 08:55] VITALS: TEMP 98.7
[2024-09-21 11:58] VITALS: BP 109/63; O2SAT 95
== END ==
LOC: M IRPRO 08:37
PROVIDERS: ATTEND Specialist
DX: R91.1 Solitary pulmonary nodule (principal); J95.811 Postprocedural pneumothorax; C34.11 Malignant neoplasm of upper lobe, right bronchus or lung

== ENCOUNTER → 2024-10-15 | Outpatient (CLI) | payer MEDICARE ==
[~2024-10-15] MED LIST changes: -HOME MED LIST COMPLETE! XX SCH; +ISOVUE-370 76% 100ML VIAL As Ordered ONE; +LIDO30CR18 TOP; -LIDOCAINE 1% MDV 20ML VIAL As Ordered ONE
== END ==
LOC: M RAD 15:37
PROVIDERS: ATTEND Specialist
DX: C34.90 Malignant neoplasm of unspecified part of unspecified bronchus or lung (principal)
CPT/HCPCS: 71260; Q9967

== ENCOUNTER 2024-10-17 09:56 | Day surgery (SDC) | payer MEDICARE ==
[~2024-10-17] VITALS: Ht 160 cm; Wt 46.1 kg
[~2024-10-17 09:56] MED LIST changes: -ISOVUE-370 76% 100ML VIAL As Ordered ONE
[2024-10-17] MEDS: LIDOCAINE PRES-FREE 2% 10ML AMP INH ONE (11:26)
[2024-10-17] MEDS: ALBUTEROL SULFATE 2.5MG/0.5ML INH NEB SOLN INH ONE (11:26)
[2024-10-17] MEDS ORDERED: MIDAZOLAM INJ 2MG/2ML VIAL As Ordered ONE (11:40)
[2024-10-17] MEDS ORDERED: LIDOCAINE 2% 100MG/5ML SDV (FOR ANES.) As Ordered ONE (11:40)
[2024-10-17] MEDS ORDERED: ROCURONIUM BROMIDE 50MG/5ML VIAL As Ordered ONE (11:40)
[2024-10-17] MEDS ORDERED: propofoL 200 MG/20 ML VIAL As Ordered ONE (11:40)
[2024-10-17] MEDS ORDERED: ONDANSETRON 4MG 2ML VIAL As Ordered ONE (11:40)
[2024-10-17] MEDS ORDERED: fentaNYL 100 MCG/2 ML INJECTION As Ordered ONE (11:40)
[2024-10-17] MEDS ORDERED: SUGAMMADEX SODIUM 500 MG/5 ML VIAL (BRIDION) As Ordered ONE (11:40)
[2024-10-17] MEDS ORDERED: PHENYLEPHRINE 10MG/ML 1ML VIAL As Ordered ONE (12:17)
[2024-10-17] MEDS: CETACAINE SPRAY 5GM As Ordered ONE (12:20)
[2024-10-17] MEDS: EPINEPHrine 1MG/10ML SYRINGE 1.5IN As Ordered ONE (13:18)
[2024-10-17] MEDS: THROMBIN 5,000 UNITS VIAL As Ordered ONE (13:19)
[2024-10-17] MEDS: ALBUTEROL SULFATE 2.5MG/0.5ML INH NEB SOLN INH STA (13:55)
[2024-10-17] MEDS: SODIUM CHLORIDE 0.9% 1000 ML IV STA ×2 (14:13→15:13)
[2024-10-17 16:20] VITALS: BP 90/55; TEMP 98.6; O2SAT 96
== END 2024-10-17 16:33 | disposition home or self-care (01) ==
LOC: M SDC 09:56
PROVIDERS: ATTEND Internal Medicine Critical Care Medicine
DX: R59.0 Localized enlarged lymph nodes (principal); R91.8 Other nonspecific abnormal finding of lung field; I71.40 Abdominal aortic aneurysm, without rupture, unspecified; K50.90 Crohn's disease, unspecified, without complications; F41.9 Anxiety disorder, unspecified; F32.A Depression, unspecified; E46 Unspecified protein-calorie malnutrition; Z87.891 Personal history of nicotine dependence; J44.9 Chronic obstructive pulmonary disease, unspecified; Z79.02 Long term (current) use of antithrombotics/antiplatelets; Z79.01 Long term (current) use of anticoagulants; Z79.899 Other long term (current) drug therapy
CPT/HCPCS: 31629; 31654; 71045; 88173; 88305; J0171; J1100; J2250; J2371; J2405; J3010

== ENCOUNTER → 2024-11-05 | Outpatient (CLI) | payer MEDICARE ==
[~2024-11-05] MED LIST changes: +PROHANCE 279.3MG/ML 5ML VIAL As Ordered ONE
== END ==
LOC: M RAD 13:04
PROVIDERS: ATTEND Specialist
DX: C34.90 Malignant neoplasm of unspecified part of unspecified bronchus or lung (principal)
CPT/HCPCS: 70553; A9576

== ENCOUNTER → 2024-11-23 | Outpatient (CLI) | payer MEDICARE ==
[~2024-11-23] MED LIST changes: -PROHANCE 279.3MG/ML 5ML VIAL As Ordered ONE
== END ==
LOC: M ONCR 10:28
PROVIDERS: ATTEND General Practice
DX: C34.11 Malignant neoplasm of upper lobe, right bronchus or lung (principal); Z90.710 Acquired absence of both cervix and uterus; Z90.49 Acquired absence of other specified parts of digestive tract; Z95.5 Presence of coronary angioplasty implant and graft; Z80.3 Family history of malignant neoplasm of breast; Z87.891 Personal history of nicotine dependence; Z79.01 Long term (current) use of anticoagulants; Z79.02 Long term (current) use of antithrombotics/antiplatelets; Z79.899 Other long term (current) drug therapy

== ENCOUNTER 2024-11-29 13:49 | Outpatient (RCR) | payer MEDICARE | END 2024-12-21 | LOC: M ONCR 13:49 | PROVIDERS: ATTEND General Practice | DX: Z51.0 Encounter for antineoplastic radiation therapy (principal); C34.11 Malignant neoplasm of upper lobe, right bronchus or lung ==

== ENCOUNTER 2024-12-24 14:04 | Outpatient (RCR) | payer MEDICARE ==
[2025-01-10] MEDS ORDERED: ONDA-84 PO (14:29)
[2025-01-10] MEDS ORDERED: TRIA1CR80 TOP (14:29)
[2025-01-14] MEDS ORDERED: MAGICMW SSP (11:21)
[2025-01-14] MEDS ORDERED: OXYC-517 PO (14:03)
[2025-01-14] MEDS ORDERED: LIDO15SO8 PO (14:04)
[2025-01-15] MEDS ORDERED: OXYC1SOL3 PO (14:20)
[2025-01-16] MEDS ORDERED: POTA-151 PO (16:02)
[2025-01-21] MEDS ORDERED: OLAN5ZYD PO (14:24)
== END 2025-01-18 ==
LOC: M ONCR 14:04
PROVIDERS: ATTEND General Practice
DX: Z51.0 Encounter for antineoplastic radiation therapy (principal); C34.11 Malignant neoplasm of upper lobe, right bronchus or lung

== ENCOUNTER → 2025-01-18 | Outpatient (RCR) | payer MEDICARE ==
[2025-01-15] MEDS: NS (Normal Saline) 0.9% 1,000 ML IV ONE (15:07)
[2025-01-15] MEDS: dexAMETHasone 20MG/5ML VIAL IV ONE (15:08)
[2025-01-15] MEDS: SODIUM CHLORIDE 0.9% INJ 10 ML SYR IV PRN (15:08)
[~2025-01-18] MED LIST changes: +LIDO15SO8 PO; +MAGICMW SSP; +OLAN5ZYD PO; +ONDA-84 PO; +OXYC-517 PO; +OXYC1SOL3 PO; +POTA-151 PO; +TRIA1CR80 TOP
== END ==
LOC: M ONCR 12-24 13:38
PROVIDERS: ATTEND General Practice
DX: Z51.0 Encounter for antineoplastic radiation therapy (principal); C34.11 Malignant neoplasm of upper lobe, right bronchus or lung
CPT/HCPCS: 77300; 77336; 77338; 77386; J1100; J1642

== ENCOUNTER → 2025-01-28 | Outpatient (REF) | payer MEDICARE | LOC: M LAB REF 12:46 | PROVIDERS: ATTEND Internal Medicine Critical Care Medicine | DX: R19.8 Other specified symptoms and signs involving the digestive system and abdomen (principal) ==

== ENCOUNTER 2025-02-01 13:32 | Outpatient (RCR) | payer MEDICARE | END 2025-02-18 | LOC: M ONCR 13:32 | PROVIDERS: ATTEND General Practice | DX: Z51.0 Encounter for antineoplastic radiation therapy (principal); C34.11 Malignant neoplasm of upper lobe, right bronchus or lung ==

== ENCOUNTER → 2025-02-26 | Outpatient (CLI) | payer MEDICARE ==
[~2025-02-26] MED LIST changes: +ISOVUE-370 76% 100ML VIAL ONE
== END ==
LOC: M PLAIMG 12:30
PROVIDERS: ATTEND General Practice
DX: C34.11 Malignant neoplasm of upper lobe, right bronchus or lung (principal)
CPT/HCPCS: 71260; Q9967

== ENCOUNTER → 2025-03-05 | Outpatient (CLI) | payer MEDICARE ==
[~2025-03-05] MED LIST changes: -ISOVUE-370 76% 100ML VIAL ONE
== END ==
LOC: M ONCR 13:57
PROVIDERS: ATTEND General Practice
DX: C34.11 Malignant neoplasm of upper lobe, right bronchus or lung (principal); Z92.21 Personal history of antineoplastic chemotherapy; Z92.3 Personal history of irradiation; Z87.891 Personal history of nicotine dependence; Z79.02 Long term (current) use of antithrombotics/antiplatelets; Z79.899 Other long term (current) drug therapy; Z79.01 Long term (current) use of anticoagulants

== ENCOUNTER 2025-03-14 12:13 | Emergency (ER) | payer MEDICARE ==
[~2025-03-14] VITALS: Ht 160 cm; Wt 42.7 kg
[2025-03-14 13:40] LABS: BASO % 0.3 % (0.0-1.0); EOS % 0.2 % (0.0-3.0); HEMATOCRIT 24.1 % (36.0-47.0); HEMOGLOBIN 7.1 g/dl (12.0-15.5); LYMPH # 0.4 10^3/uL (1.5-5.0); LYMPH % 5.1 % (24.0-44.0); MEAN CORPUSCULAR HEMOGLOBIN 29.5 pg (27.0-33.0); MEAN CORPUSCULAR HGB CONC 29.5 g/dl (32.0-36.5); MONO # 0.9 10^3/uL (0.0-0.8); MONO % 10.3 % (2.0-8.0); NEUTROPHILS # 7.3 10^3/uL (1.5-8.5); NEUTROPHILS % 83.4 % (36.0-66.0); PLATELET COUNT, AUTOMATED 296 10^3/uL (150-450); RED BLOOD COUNT 2.41 10^6/uL (4.00-5.40); WHITE BLOOD COUNT 8.7 10^3/uL (4.0-10.0)
[2025-03-14 13:54] LABS: INR 1.06; PARTIAL THROMBOPLASTIN TIME 26.2 SECONDS (24.8-34.2); PROTHROMBIN TIME 14.1 SECONDS (12.5-14.5)
[2025-03-14 14:02] LABS: LIPASE 26 U/L (12-53)
[2025-03-14 14:04] LABS: ALBUMIN 3.1 G/DL (3.2-5.2); ALKALINE PHOSPHATASE 120 U/L (35-104); ALT/SGPT 88 U/L (7.0-40); AST/SGOT 41 U/L (<34); BILIRUBIN,DIRECT < 0.1 MG/DL (<0.4); BILIRUBIN,TOTAL 0.3 MG/DL (0.3-1.2); BLOOD UREA NITROGEN 18 MG/DL (9-23); CALCIUM LEVEL 8.9 MG/DL (8.3-10.6); CARBON DIOXIDE LEVEL 26 MMOL/L (20-31); CHLORIDE LEVEL 103 MMOL/L (98-107); GLOMERULAR FILTRATION RATE > 90.0 (>45); GLUCOSE, FASTING 114 MG/DL (74-106); POTASSIUM SERUM 4.3 MMOL/L (3.5-5.1); SODIUM LEVEL 140 MMOL/L (136-145); TOTAL PROTEIN 6.3 G/DL (5.7-8.2)
[2025-03-14] MEDS ORDERED: NS 500 ML IV ONE (14:35)
[2025-03-14] MEDS ORDERED: ISOVUE-370 76% 100ML VIAL As Ordered ONE (14:40)
[2025-03-14 14:59] VITALS: BP 116/58; TEMP 97.3; O2SAT 100
[2025-03-14 15:15] VITALS: BP 126/65; TEMP 96.8; O2SAT 100
[2025-03-14] MEDS: PANTOPRAZOLE SODIUM 40 MG in DEXTROSE 5% (D5W) ADV/MINI-BAG 50 ML IV SCH (15:20)
[2025-03-14] MEDS: PANTOPRAZOLE 40MG VIAL IV ONE (15:21)
[2025-03-14 16:00] VITALS: BP 137/65; O2SAT 100
[2025-03-14 17:00] VITALS: BP 143/78; TEMP 97.6; O2SAT 99
[2025-03-14 17:48] VITALS: BP 102/61; TEMP 98.5; O2SAT 99
== END 2025-03-14 17:51 | disposition short-term general hospital (02) ==
LOC: M ED 12:13
DX: K92.2 Gastrointestinal hemorrhage, unspecified (principal); C34.90 Malignant neoplasm of unspecified part of unspecified bronchus or lung; K56.609 Unspecified intestinal obstruction, unspecified as to partial versus complete obstruction; Z79.01 Long term (current) use of anticoagulants; Z79.02 Long term (current) use of antithrombotics/antiplatelets; Z79.899 Other long term (current) drug therapy; Z92.21 Personal history of antineoplastic chemotherapy
CPT/HCPCS: 36430; 71045; 71275; 74174; 80047; 80048; 80076; 83690; 85025; 85610; 85730; 86850; 86900; 86901; 86920; 96365; 96366; 96375; 99285; J2470; P9016; Q9967